=== PATIENT | male | born 1950 | race American Indian/Alaskan Native ===

== ENCOUNTER 2019-09-08 12:18 | Inpatient (IN) | payer OTHER ==
--- NOTE | 2019-09-08 13:31 | Event Note ---
ED Screening Note Date of service: 09/08/19 Time: 13:26 ED Screening Note: 69 y o male altered and poor historian presents unable to answer why he is here This initial assessment/diagnostic orders/clinical plan/treatment(s) is/are subject to change based on patients health status, clinical progression and re- assessment by fellow clinical providers in the ED. Further treatment and workup at subsequent clinical providers discretion. Patient/guardian urged not to elope from the ED as their condition may be serious if not clinically assessed and managed. Initial orders include: labs, ua, uds main side eval
[2019-09-08] MEDS ORDERED: SODIUM CHLORIDE 0.9% 500 ML 500 ML IV ONE (15:31)
--- NOTE | 2019-09-08 15:32 | Emergency Department Report ---
ED Altered Mental Status HPI - General Chief Complaint: Medical Clearance Stated Complaint: HOMELESS Time Seen by Provider: 09/08/19 15:30 Source: patient, EMS Mode of arrival: Wheelchair Limitations: No Limitations - History of Present Illness Initial Comments: Patient is a 69-year-old male that presents emergency room with complaints of altered mental status. Patient is currently anal times one. Patient states she's on pain. Patient states he's not sure why he is here. Patient was brought in by EMS as he was found wandering at a gas station. MD Complaint: altered mental status, confusion -: Sudden Severity: severe Consistency of Symptoms: constant Context: other Associated Symptoms: denies other symptoms - Related Data Allergies Allergy/AdvReac Type Severity Reaction Status Date / Time No Known Allergies Allergy Unverified 09/08/19 12:27 ED Review of Systems ROS: Stated complaint: HOMELESS Other details as noted in HPI Comment: Unobtainable due to pts medical conditions ED Past Medical Hx - Past Medical History Previous Medical History?: No - Surgical History Past Surgical History?: No - Family History Family history: no significant - Social History Smoking Status: Unknown if ever smoked Substance Use Type: None ED Physical Exam - General Limitations: Altered Mental Status General appearance: alert, in no apparent distress - Head Head exam: Present: atraumatic, normocephalic - Eye Eye exam: Present: normal appearance - ENT ENT exam: Present: mucous membranes moist - Neck Neck exam: Present: normal inspection - Respiratory Respiratory exam: Present: normal lung sounds bilaterally. Absent: respiratory distress, wheezes - Cardiovascular Cardiovascular Exam: Present: regular rate, normal rhythm. Absent: systolic murmur, diastolic murmur, rubs, gallop - GI/Abdominal GI/Abdominal exam: Present: soft, normal bowel sounds. Absent: distended, tenderness, guarding - Rectal Rectal exam: Present: deferred - Extremities Exam Extremities exam: Present: normal inspection - Back Exam Back exam: Present: normal inspection - Neurological Exam Neurological exam: Present: alert, altered - Psychiatric Psychiatric exam: Present: normal affect, normal mood - Skin Skin exam: Present: warm, dry, intact, normal color. Absent: rash - Assessment Assessment Interval: Baseline - Level of Consciousness 1a. Level of Consciousness: alert/keenly responsive - LOC Questions 1b. LOC Questions: answers both correctly - LOC Command 1c. LOC Commands: performs tasks correctly - Best Gaze 2. Best Gaze: normal - Visual 3. Visual: no visual loss - Facial Palsy 4. Facial Palsy: normal symmetrical movement - Motor Arm 5a. Motor Arm Left: no drift 5b. Motor Arm Right: no drift - Motor Leg 6a. Motor Leg Left: no drift 6b. Motor Leg Right: no drift - Limb Ataxia 7. Limb Ataxia: absent - Sensory 8. Sensory: normal - Best Language 9. Best Language: no aphasia - Dysarthria 10. Dysarthria: normal - Extinction and Inattention 11. Extinction/Inattention: no abnormality - Scoring Total Score: 0 Stroke Severity: No Stroke Symptoms ED Course Vital Signs 09/08/19 09/08/19 13:33 18:40 Temperature 97.1 F L 98.1 F Pulse Rate 50 L 71 Respiratory 18 18 Rate Blood Pressure 102/67 136/80 O2 Sat by Pulse 100 93 Oximetry - Reevaluation(s) Reevaluation #1: Discussed all results patient. Patient will be admitted to the hospital service. 09/08/19 18:09 - Consultations Consultation #1: hospitalist consulted admission. Hospitalist admit patient. 09/08/19 18:09 - Lab Data Result diagrams: 09/08/19 15:46 09/08/19 15:46 Lab Results 09/08/19 09/08/19 09/08/19 Range/Units 15:46 15:46 15:46 WBC 5.8 (4.5-11.0) K/mm3 RBC 4.01 (3.65-5.03) M/mm3 Hgb 10.0 L (11.8-15.2) gm/dl Hct 31.9 L (35.5-45.6) % MCV 79 L (84-94) fl MCH 25 L (28-32) pg MCHC 31 L (32-34) % RDW 16.3 H (13.2-15.2) % Plt Count 617 H (140-440) K/mm3 Lymph % (Auto) 19.8 (13.4-35.0) % [place] % (Auto) 9.4 H (0.0-7.3) % Eos % (Auto) 2.2 (0.0-4.3) % Baso % (Auto) 0.7 (0.0-1.8) % Lymph # 1.1 L (1.2-5.4) K/mm3 [place] # 0.5 (0.0-0.8) K/mm3 Eos # 0.1 (0.0-0.4) K/mm3 Baso # 0.0 (0.0-0.1) K/mm3 Seg Neutrophils % 67.9 (40.0-70.0) % Seg Neutrophils # 3.9 (1.8-7.7) K/mm3 Sodium 148 H (137-145) mmol/L Potassium 3.5 L (3.6-5.0) mmol/L Chloride 111.3 H (98-107) mmol/L Carbon Dioxide 22 (22-30) mmol/L Anion Gap 18 mmol/L BUN 18 (9-20) mg/dL Creatinine 0.8 (0.8-1.5) mg/dL Estimated GFR > 60 ml/min BUN/Creatinine Ratio 23 % Glucose 105 H (75-100) mg/dL Calcium 8.5 (8.4-10.2) mg/dL Total Bilirubin 0.20 (0.1-1.2) mg/dL AST 51 H (5-40) units/L ALT 41 (7-56) units/L Alkaline Phosphatase 74 (35-129) units/L Total Protein 6.1 L (6.3-8.2) g/dL Albumin 3.3 L (3.9-5) g/dL Albumin/Globulin Ratio 1.2 % TSH 2.940 (0.270-4.200) mlU/mL Acetaminophen (10.0-30.0) ug/mL Plasma/Serum Alcohol (0-0.07) % 09/08/19 09/08/19 Range/Units 15:46 15:46 WBC (4.5-11.0) K/mm3 RBC (3.65-5.03) M/mm3 Hgb (11.8-15.2) gm/dl Hct (35.5-45.6) % MCV (84-94) fl MCH (28-32) pg MCHC (32-34) % RDW (13.2-15.2) % Plt Count (140-440) K/mm3 Lymph % (Auto) (13.4-35.0) % [place] % (Auto) (0.0-7.3) % Eos % (Auto) (0.0-4.3) % Baso % (Auto) (0.0-1.8) % Lymph # (1.2-5.4) K/mm3 [place] # (0.0-0.8) K/mm3 Eos # (0.0-0.4) K/mm3 Baso # (0.0-0.1) K/mm3 Seg Neutrophils % (40.0-70.0) % Seg Neutrophils # (1.8-7.7) K/mm3 Sodium (137-145) mmol/L Potassium (3.6-5.0) mmol/L Chloride (98-107) mmol/L Carbon Dioxide (22-30) mmol/L Anion Gap mmol/L BUN (9-20) mg/dL Creatinine (0.8-1.5) mg/dL Estimated GFR ml/min BUN/Creatinine Ratio % Glucose (75-100) mg/dL Calcium (8.4-10.2) mg/dL Total Bilirubin (0.1-1.2) mg/dL AST (5-40) units/L ALT (7-56) units/L Alkaline Phosphatase (35-129) units/L Total Protein (6.3-8.2) g/dL Albumin (3.9-5) g/dL Albumin/Globulin Ratio % TSH (0.270-4.200) mlU/mL Acetaminophen < 5.0 L (10.0-30.0) ug/mL Plasma/Serum Alcohol < 0.01 (0-0.07) % - EKG Data -: EKG Interpreted by Wy EKG shows normal: sinus rhythm, axis, intervals, QRS complexes, ST-T waves Rate: bradycardia - Radiology Data Radiology results: report reviewed, image reviewed No acute findings on head CT. - Medical Decision Making Patient is a 69-year-old male that presents emergency room with complaints of altered mental status. Patient is confused and oriented times one. Patient denies any physical complaints. Patient had labs done and shows hypernatremia and anemia. Patient admitted to the hospitalist service for further evaluation and treatment. - Differential Diagnosis altered mental status. Confusion. Electrolyte imbalance. Critical Care Time: Yes Critical care time in (mins) excluding proc time.: 35 Critical care attestation.: If time is entered above; I have spent that time in minutes in the direct care of this critically ill patient, excluding procedure time. Critical Care Time: 35 minutes ED Disposition Clinical Impression: Confusion, Hyponatremia Anemia Qualifiers: Anemia type: unspecified type Qualified Code(s): D64.9 - Anemia, unspecified Altered mental state Qualifiers: Altered mental status type: unspecified Qualified Code(s): R41.82 - Altered mental status, unspecified Disposition: DC-09 OP ADMIT IP TO THIS HOSP Is pt being admited?: Yes Does the pt Need Aspirin: No Condition: Critical Time of Disposition: 18:14
[2019-09-08 15:58] LABS: Basophils % (Auto) 0.7 % (0.0-1.8); Eosinophils # (Auto) 0.1 K/mm3 (0.0-0.4); Eosinophils % (Auto) 2.2 % (0.0-4.3); Hematocrit 31.9 % (35.5-45.6); Lymphocytes # (Auto) 1.1 K/mm3 (1.2-5.4); Lymphocytes % (Auto) 19.8 % (13.4-35.0); Mean Corpuscular HGB Conc 31 % (32-34); Mean Corpuscular Volume 79 fl (84-94); Monocytes # (Auto) 0.5 K/mm3 (0.0-0.8); Monocytes % (Auto) 9.4 % (0.0-7.3); Platelet Count 617 K/mm3 (140-440); Red Blood Count 4.01 M/mm3 (3.65-5.03); Red Cell Distribution Width 16.3 % (13.2-15.2)
[2019-09-08 16:59] LABS: Alanine Aminotransferase 41 units/L (7-56); Albumin 3.3 g/dL (3.9-5); BUN/Creatinine Ratio 23; Blood Urea Nitrogen 18 mg/dL (9-20); Calcium 8.5 mg/dL (8.4-10.2); Hemolysis Index 1
--- NOTE | 2019-09-08 17:46 | Cat Scan Report ---
CT head/brain wo con INDICATION / CLINICAL INFORMATION: 69 years Male; ams. TECHNIQUE: Routine CT head without contrast. All CT scans at this location are performed using CT dos e reduction for ALARA by means of automated exposure control. COMPARISON: None. FINDINGS: BRAIN / INTRACRANIAL CONTENTS: Mild cerebral atrophy and mild to moderate cerebellar atrophy noted. B ecause of the mild, asymmetrically prominent cerebellar atrophy, chronic EtOH usage, chronic antiseiz ure medication, or primary cerebellar degeneration might be considered. Otherwise, no acute hemorrhage, mass effect, midline shift, hydrocephalus, or acute, large territori al infarct. No significant white matter abnormality. CRANIOCERVICAL JUNCTION: No significant abnormality. ORBITS: No significant abnormality of visualized orbits. SINUSES / MASTOIDS: No significant abnormality the visualized paranasal sinuses or mastoid air cells. ADDITIONAL FINDINGS: None. IMPRESSION: 1. No focal mass, hemorrhage, hydrocephalus, or acute, large territorial infarct. 2. Mild atrophy as described above. Signer Name: Renan Riddle MD, III Signed: 09/08/2019 5:41 PM Workstation Name: [id number]
[2019-09-08 21:05] LABS: BUN/Creatinine Ratio 18; Blood Urea Nitrogen 16 mg/dL (9-20); Calcium 8.2 mg/dL (8.4-10.2); Hemolysis Index 3
--- NOTE | 2019-09-08 22:34 | History and Physical Report ---
History of Present Illness Date of examination: 09/08/19 Date of admission: 09/08/19 20:08 Chief complaint: Decreased mentation History of present illness: 69-year-old male presents to emergency room with complaints of altered mental status. Patient is currently alert times one. Patient states he's not sure why he is here. Patient was brought in by EMS as he was found wandering at a gas station. Past Medical History Previous Medical History?: No Surgical History Past Surgical History?: No Family History Family history: no significant Social History Smoking Status: Unknown if ever smoked Substance Use Type: None Review of Systems ROS: Stated complaint: HOMELESS Other details as noted in HPI Comment: Unobtainable due to pts medical conditions Medications and Allergies Allergies Allergy/AdvReac Type Severity Reaction Status Date / Time No Known Allergies Allergy Unverified 09/08/19 12:27 Exam - Constitutional Vitals: Temp Pulse Resp BP Pulse Ox 98.1 F 71 18 136/80 93 09/08/19 18:40 09/08/19 18:40 09/08/19 18:40 09/08/19 18:40 09/08/19 18:40 General appearance: Present: no acute distress, well-nourished - EENT Eyes: Present: PERRL ENT: hearing intact, clear oral mucosa - Neck Neck: Present: supple, normal ROM - Respiratory Respiratory effort: normal Respiratory: bilateral: CTA - Cardiovascular Heart rate: 78 Rhythm: regular Heart Sounds: Present: S1 & S2. Absent: rub, click - Extremities Extremities: no ischemia, pulses intact, pulses symmetrical, No edema Peripheral Pulses: within normal limits - Abdominal General gastrointestinal: Present: soft, non-tender, non-distended, normal bowel sounds Male genitourinary: Present: normal - Rectal Rectal Exam: deferred - Integumentary Integumentary: Present: clear, warm, dry - Musculoskeletal Musculoskeletal: generalized weakness - Psychiatric Psychiatric: appropriate mood/affect, other (Alert but not oriented) - Neurologic Neurologic: CNII-XII intact, moves all extremities - Allied Health Allied health notes reviewed: nursing, case management Results - Labs CBC & Chem 7: 09/08/19 15:46 09/08/19 20:45 Labs: Laboratory Last Values WBC 5.8 K/mm3 (4.5-11.0) 09/08/19 15:46 RBC 4.01 M/mm3 (3.65-5.03) 09/08/19 15:46 Hgb 10.0 gm/dl (11.8-15.2) L 09/08/19 15:46 Hct 31.9 % (35.5-45.6) L 09/08/19 15:46 MCV 79 fl (84-94) L 09/08/19 15:46 MCH 25 pg (28-32) L 09/08/19 15:46 MCHC 31 % (32-34) L 09/08/19 15:46 RDW 16.3 % (13.2-15.2) H 09/08/19 15:46 Plt Count 617 K/mm3 (140-440) H 09/08/19 15:46 Lymph % (Auto) 19.8 % (13.4-35.0) 09/08/19 15:46 [place] % (Auto) 9.4 % (0.0-7.3) H 09/08/19 15:46 Eos % (Auto) 2.2 % (0.0-4.3) 09/08/19 15:46 Baso % (Auto) 0.7 % (0.0-1.8) 09/08/19 15:46 Lymph # 1.1 K/mm3 (1.2-5.4) L 09/08/19 15:46 [place] # 0.5 K/mm3 (0.0-0.8) 09/08/19 15:46 Eos # 0.1 K/mm3 (0.0-0.4) 09/08/19 15:46 Baso # 0.0 K/mm3 (0.0-0.1) 09/08/19 15:46 Seg Neutrophils % 67.9 % (40.0-70.0) 09/08/19 15:46 Seg Neutrophils # 3.9 K/mm3 (1.8-7.7) 09/08/19 15:46 Sodium 148 mmol/L (137-145) H 09/08/19 20:45 Potassium 3.3 mmol/L (3.6-5.0) L 09/08/19 20:45 Chloride 114.6 mmol/L (98-107) H 09/08/19 20:45 Carbon Dioxide 21 mmol/L (22-30) L 09/08/19 20:45 Anion Gap 16 mmol/L 09/08/19 20:45 BUN 16 mg/dL (9-20) 09/08/19 20:45 Creatinine 0.9 mg/dL (0.8-1.5) 09/08/19 20:45 Estimated GFR > 60 ml/min 09/08/19 20:45 BUN/Creatinine Ratio 18 % 09/08/19 20:45 Glucose 68 mg/dL (75-100) L 09/08/19 20:45 Calcium 8.2 mg/dL (8.4-10.2) L 09/08/19 20:45 Total Bilirubin 0.20 mg/dL (0.1-1.2) 09/08/19 15:46 AST 51 units/L (5-40) H 09/08/19 15:46 ALT 41 units/L (7-56) 09/08/19 15:46 Alkaline Phosphatase 74 units/L (35-129) 09/08/19 15:46 Total Protein 6.1 g/dL (6.3-8.2) L 09/08/19 15:46 Albumin 3.3 g/dL (3.9-5) L 09/08/19 15:46 Albumin/Globulin Ratio 1.2 % 09/08/19 15:46 TSH 2.940 mlU/mL (0.270-4.200) 09/08/19 15:46 Acetaminophen < 5.0 ug/mL (10.0-30.0) L 09/08/19 15:46 Plasma/Serum Alcohol < 0.01 % (0-0.07) 09/08/19 15:46 - Imaging and Cardiology CT Scan - head: report reviewed (NAF,Mild Atrophy) Assessment and Plan Advance Directives: Yes (Full code) VTE prophylaxis?: Chemical Plan of care discussed with patient/family: Yes - Patient Problems (1) Altered mental state Current Visit: Yes Status: Acute Qualifiers: Altered mental status type: unspecified Qualified Code(s): R41.82 - Altered mental status, unspecified Plan to address problem: Possible vascular dementia MRI brain and Neuro consult (2) Hypernatremia Current Visit: Yes Status: Acute Plan to address problem: D5w for now (3) Anemia Current Visit: Yes Status: Chronic Qualifiers: Anemia type: unspecified type Qualified Code(s): D64.9 - Anemia, unspecified Plan to address problem: Anemia W/u (4) Hypokalemia Current Visit: Yes Status: Acute Plan to address problem: Supplemented (5) DVT prophylaxis Current Visit: Yes Status: Acute Plan to address problem: On Heparin and GI prophylaxis
[2019-09-08] MEDS ORDERED: ONDANSETRON 4 MG/2 ML INJ IV PRN (22:36)
[2019-09-08] MEDS ORDERED: SODIUM CHLORIDE 0.45% 1000 ML 1,000 ML IV SCH (23:00)
[2019-09-09] MEDS ORDERED: POTASSIUM CHLORIDE ER 20 MEQ TAB PO ONE (07:32)
[2019-09-09] MEDS: DEXTROSE 5% IN WATER 1,000 ML IV SCH ×2 (08:35→19:24)
[2019-09-09] MEDS: FAMOTIDINE 20 MG/2 ML INJ IV SCH ×2 (09:22→21:38)
[2019-09-09] MEDS: HEPARIN 5,000 UNIT/1 ML VIAL SUB-Q SCH ×2 (09:22→21:39)
--- NOTE | 2019-09-09 09:55 | Consultation ---
History of Present Illness Consult date: 09/09/19 History of present illness: I have dictated a full note on this patient and examined him the CT of the head is clearly normal klabs are basically WNL's suspect dementia work up is reqasonable Medications and Allergies Allergies Allergy/AdvReac Type Severity Reaction Status Date / Time No Known Allergies Allergy Unverified 09/08/19 12:27 Active Meds: Active Medications Acetaminophen (Tylenol) 650 mg PO Q4H PRN PRN Reason: Pain MILD(1-3)/Fever >100.5/AYALA Famotidine (Pepcid) 20 mg IV BID [facility] Last Admin: 09/09/19 09:22 Dose: 20 mg Documented by: Heparin Sodium (Porcine) (Heparin) 5,000 unit SUB-Q Q12HR [facility] Last Admin: 09/09/19 09:22 Dose: 5,000 unit Documented by: Dextrose (D5w) 1,000 mls @ 100 mls/hr IV DIRECT [facility] Last Admin: 09/09/19 08:35 Dose: 100 mls/hr Documented by: Ondansetron HCl (Zofran) 4 mg IV Q8H PRN PRN Reason: Nausea And Vomiting Oxycodone/Acetaminophen (Percocet 5/325) 1 tab PO Q6H PRN PRN Reason: Pain, Moderate (4-6) Sodium Chloride (Sodium Chloride Flush Syringe 10 Ml) 10 ml IV BID [facility] Last Admin: 09/09/19 09:22 Dose: 10 ml Documented by: Sodium Chloride (Sodium Chloride Flush Syringe 10 Ml) 10 ml IV PRN PRN PRN Reason: LINE FLUSH Physical Examination - Vital Signs Vital Signs: Vital Signs Temp Pulse Resp BP Pulse Ox 97.1 F L 50 L 18 102/67 100 09/08/19 13:33 09/08/19 13:33 09/08/19 13:33 09/08/19 13:33 09/08/19 13:33 Results - Laboratory Findings CBC and BMP: 09/08/19 15:46 09/08/19 20:45 Abnormal Lab Findings: Abnormal Labs 09/08/19 09/08/19 09/08/19 15:46 15:46 15:46 Hgb 10.0 L Hct 31.9 L MCV 79 L MCH 25 L MCHC 31 L RDW 16.3 H Plt Count 617 H [place] % (Auto) 9.4 H Lymph # 1.1 L Sodium 148 H Potassium 3.5 L Chloride 111.3 H Carbon Dioxide Glucose 105 H Calcium AST 51 H Total Protein 6.1 L Albumin 3.3 L Acetaminophen < 5.0 L 09/08/19 20:45 Hgb Hct MCV MCH MCHC RDW Plt Count [place] % (Auto) Lymph # Sodium 148 H Potassium 3.3 L Chloride 114.6 H Carbon Dioxide 21 L Glucose 68 L Calcium 8.2 L AST Total Protein Albumin Acetaminophen
--- NOTE | 2019-09-09 13:48 | Progress Note ---
Assessment and Plan / Altered mental state Possible vascular dementia MRI brain and Neuro consult / Hypernatremia D5w for now /Hypokalemia, replete potassium /Anemia, likely due to chronic disease Anemia W/u / DVT prophylaxis On Heparin and GI prophylaxis Hospitalist Physical exam: GENERAL: well-developed and well-nourished -[place] male lying on bed appeared to be in no discomfort. Does not respond to any verbal commands HEENT: Normocephalic. Atraumatic. No conjunctival congestion or icterus. Patient has moist mucous membranes. NECK: Supple. Trachea midline. CHEST/LUNGS: Clear to auscultated bilaterally, breathing nonlabored. No wheezes crackles or rhonchi. HEART/CARDIOVASCULAR: Regular in rate and rhythm. S1 and S2 positive. ABDOMEN: Abdomen is soft, nontender. Patient has normal bowel sounds. SKIN: There is no rash. Warm and dry. NEURO: No focal motor deficit/moves all extremities. does not Follows command. MUSCULOSKELETAL: No joint effusion or tenderness. EXTRIMITY: No edema, no cyanosis or clubbing. PSYCH: Not Cooperative. Flat affect Subjective Date of service: 09/09/19 Interval history: Patient seen and examined. Medical records and medication list reviewed. No acute event overnight noted by the RN. Patient appears sleepy and does not respond to verbal command Objective - Constitutional Vitals: Vital Signs - 12hr 09/09/19 09/09/19 07:20 10:00 Temperature 97.5 F L Pulse Rate 57 L 57 L Respiratory 18 Rate Blood Pressure 109/41 O2 Sat by Pulse 90 Oximetry - Labs CBC & Chem 7: 09/09/19 15:05 09/10/19 04:11 Labs: Abnormal lab results 09/08/19 09/08/19 09/08/19 Range/Units 15:46 15:46 15:46 Hgb 10.0 L (11.8-15.2) gm/dl Hct 31.9 L (35.5-45.6) % MCV 79 L (84-94) fl MCH 25 L (28-32) pg MCHC 31 L (32-34) % RDW 16.3 H (13.2-15.2) % Plt Count 617 H (140-440) K/mm3 [place] % (Auto) 9.4 H (0.0-7.3) % Lymph # 1.1 L (1.2-5.4) K/mm3 Sodium 148 H (137-145) mmol/L Potassium 3.5 L (3.6-5.0) mmol/L Chloride 111.3 H (98-107) mmol/L Carbon Dioxide (22-30) mmol/L Glucose 105 H (75-100) mg/dL Calcium (8.4-10.2) mg/dL AST 51 H (5-40) units/L Total Protein 6.1 L (6.3-8.2) g/dL Albumin 3.3 L (3.9-5) g/dL Acetaminophen < 5.0 L (10.0-30.0) ug/mL 09/08/ Range/Units 20:45 Hgb (11.8-15.2) gm/dl Hct (35.5-45.6) % MCV (84-94) fl MCH (28-32) pg MCHC (32-34) % RDW (13.2-15.2) % Plt Count (140-440) K/mm3 [place] % (Auto) (0.0-7.3) % Lymph # (1.2-5.4) K/mm3 Sodium 148 H (137-145) mmol/L Potassium 3.3 L (3.6-5.0) mmol/L Chloride 114.6 H (98-107) mmol/L Carbon Dioxide 21 L (22-30) mmol/L Glucose 68 L (75-100) mg/dL Calcium 8.2 L (8.4-10.2) mg/dL AST (5-40) units/L Total Protein (6.3-8.2) g/dL Albumin (3.9-5) g/dL Acetaminophen (10.0-30.0) ug/mL
[2019-09-09 15:26] LABS: Hematocrit 31.9 % (35.5-45.6); Hemoglobin 10.1 gm/dl (11.8-15.2); Mean Corpuscular HGB Conc 32 % (32-34); Mean Corpuscular Volume 80 fl (84-94); Platelet Count 633 K/mm3 (140-440); Red Cell Distribution Width 16.6 % (13.2-15.2)
[2019-09-09 15:51] LABS: BUN/Creatinine Ratio 16; Blood Urea Nitrogen 14 mg/dL (9-20); Calcium 8.2 mg/dL (8.4-10.2); Hemolysis Index 2
--- NOTE | 2019-09-09 17:31 | Consultation ---
HISTORY OF PRESENT ILLNESS: This is a 69-year-old gentleman who by history is homeless. He presented to the hospital currently in pain and the patient states that he does not know why he was here, brought by EMS. He was wandering around a gas station, disoriented and altered mental state. History cannot be obtained from the patient. No family members are present. Evaluation of the labs revealed his hematocrit to be 31.9, white blood count 5800. His AST was slightly elevated at 51. His ALT was 41. His alkaline phosphatase was 74. His albumin was 3.3. The patient's acetaminophen level was negative. Thyroid profiles are not yet returned. The EKG was normal sinus rhythm. No other abnormalities are present. Outside history was not obtainable from the patient. He had no family, no one came with him. I reviewed his CT scan of the head and a CT scan showed sinus is normal. Retroorbital structures unremarkable. He has equivalent age-related atrophy, slightly more so in the frontal lobes, but quite within normal limits for the patient's stated age. The charles white matters have normal appearance. I do not see any evidence of any white matter hypodensities that are suggestive of stroke. The pineal gland is very minimally calcified, but is in the midline. Cerebellum may be slightly atrophic over the lateral hemispheres. The fourth ventricle is at the upper limits of normal, suggesting a mild degree of cerebellar atrophy. The remainder of the CT scan is entirely unremarkable. Further history obtainable by the staff on the floor indicates he is not eating, would not attempt to speak, would nod his head, does respond to questions, but cannot follow commands. He does seem extremely frail and very slow to react. PHYSICAL EXAMINATION: VITAL SIGNS: Reveals his pulse rate to be 74, temperature is 97.5, respiratory rate 18, blood pressure was 109/41. NEUROLOGIC: Cranial nerves are intact. Affect is withdrawn, very hyperverbal. He does not follow simple commands. He, when stimulated, rolls over in attempts to maintain some eye contact and quickly returns back to the left. He remained in a semi-sleepy state, not wishing to arouse the patient further after talking with the nurse, it was elected to simply not contribute to any agitation, but allow him to remain in a relaxing composition. Motor tone is symmetrical. No reflex abnormalities are present. Sensory examination grossly is normal. IMPRESSION AND PLAN: Encephalopathic state without obvious reason, could be related to being on antipsychotic therapy, could be substance abuse, which is not detectable at this point or he could be withdrawing from some substance and be in an altered state with altered delirium with reduced level of responsiveness. Further workup is pending. We will get an EEG. At this point, I do not think an MRI is indicated as an emergency, but observation will be made. I think it would be beneficial to get a full dementia workup. Obviously social service to contact family members to get more detailed history would be helpful. JOB# [id number] TYSHAWN/EMANUEL
[2019-09-09] MEDS: oxyCODONE /ACETAMINOPHEN 5-325MG TAB PO PRN (21:38)
[2019-09-09] MEDS ORDERED: LORazepam 2 MG/ML VIAL IV ONE (23:38)
[2019-09-10 05:11] LABS: BUN/Creatinine Ratio 18; Blood Urea Nitrogen 16 mg/dL (9-20); Hemolysis Index 5
[2019-09-10] MEDS: FAMOTIDINE 20 MG/2 ML INJ IV SCH ×2 (09:47→22:45)
[2019-09-10] MEDS: HEPARIN 5,000 UNIT/1 ML VIAL SUB-Q SCH ×2 (09:47→22:45)
--- NOTE | 2019-09-10 13:53 | Progress Note ---
Assessment and Plan / Altered mental state - Acute metabolic encephalopathy Likely from hypernatremia and underlying Possible vascular dementia MRI brain and Neuro consulted - MRI brain pending check B12, TSH / Hypernatremia, improving D5w for now /Hypokalemia, replete potassium /Anemia, likely due to chronic disease Anemia W/u / DVT prophylaxis On Heparin and GI prophylaxis Disposition: CM consulted for social evaluation, patient unable to provide any details Hospitalist Physical exam: GENERAL: well-developed and well-nourished -[place]i male lying on bed appeared to be in no discomfort. HEENT: Normocephalic. Atraumatic. No conjunctival congestion or icterus. Patient has moist mucous membranes. NECK: Supple. Trachea midline. CHEST/LUNGS: Clear to auscultated bilaterally, breathing nonlabored. No wheezes crackles or rhonchi. HEART/CARDIOVASCULAR: Regular in rate and rhythm. S1 and S2 positive. ABDOMEN: Abdomen is soft, nontender. Patient has normal bowel sounds. SKIN: There is no rash. Warm and dry. NEURO: No focal motor deficit/moves all extremities. Follows command. MUSCULOSKELETAL: No joint effusion or tenderness. EXTRIMITY: No edema, no cyanosis or clubbing. PSYCH: Cooperative. Flat affect, oriented to person only Subjective Date of service: 09/10/19 Interval history: Patient seen and examined. Medical records and medication list reviewed. No acute event overnight noted by the RN. Patient appears alert and awake today, Unaware about time and place Objective - Constitutional Vitals: Vital Signs - 12hr 09/10/19 09/10/19 09/10/19 02:24 07:41 10:00 Temperature 97.7 F 97.3 F L Pulse Rate 48 L 50 L Pulse Rate [ 50 L From Monitor] Respiratory 18 18 18 Rate Blood Pressure 128/53 122/55 O2 Sat by Pulse 96 93 93 Oximetry - Labs CBC & Chem 7: 09/09/19 15:05 09/11/19 00:37 Labs: Abnormal lab results 09/09/19 09/09/19 09/10/19 Range/Units 15:05 15:05 04:11 Hgb 10.1 L (11.8-15.2) gm/dl Hct 31.9 L (35.5-45.6) % MCV 80 L (84-94) fl MCH 25 L (28-32) pg RDW 16.6 H (13.2-15.2) % Plt Count 633 H (140-440) K/mm3 Sodium 146 H (137-145) mmol/L Potassium 3.1 L 3.4 L (3.6-5.0) mmol/L Chloride 113.8 H 110.0 H (98-107) mmol/L Carbon Dioxide 21 L (22-30) mmol/L Glucose 71 L (75-100) mg/dL Calcium 8.2 L 8.0 L (8.4-10.2) mg/dL
[2019-09-10] MEDS ORDERED: LORazepam 2 MG/ML VIAL IV ONE (22:42)
[2019-09-11 01:28] LABS: BUN/Creatinine Ratio 17; Blood Urea Nitrogen 15 mg/dL (9-20); Calcium 7.8 mg/dL (8.4-10.2); Hemolysis Index 4
[2019-09-11] MEDS ORDERED: POTASSIUM CHLORIDE ER 20 MEQ TAB PO NR (08:47)
[2019-09-11] MEDS: HEPARIN 5,000 UNIT/1 ML VIAL SUB-Q SCH ×2 (10:11→21:09)
[2019-09-11] MEDS: FAMOTIDINE 20 MG/2 ML INJ IV SCH ×2 (10:15→21:09)
--- NOTE | 2019-09-11 15:11 | Progress Note ---
Assessment and Plan / Altered mental state - Acute metabolic encephalopathy Likely from hypernatremia and underlying Possible vascular dementia MRI brain and Neuro consulted - MRI brain cannot obtain as no basic history available normal B12, TSH / Hypernatremia, improving D5w for now /Hypokalemia, replete potassium, monitor bmp /Anemia, likely due to chronic disease Anemia W/u / DVT prophylaxis On Heparin and GI prophylaxis Disposition: CM consulted for social evaluation, patient unable to provide any details Brief History: 69-year-old male presents to emergency room with complaints of altered mental status.Patient states he's not sure why he is here. Patient was brought in by EMS as he was found wandering [place] a gas station. Lab showed hypernatremia and hypokalemia. admitted for further Mx Hospitalist Physical exam: GENERAL: well-developed and well-nourished -Mongolian male lying on bed appeared to be in no discomfort. HEENT: Normocephalic. Atraumatic. No conjunctival congestion or icterus. Patient has moist mucous membranes. NECK: Supple. Trachea midline. CHEST/LUNGS: Clear to auscultated bilaterally, breathing nonlabored. No wheezes crackles or rhonchi. HEART/CARDIOVASCULAR: Regular in rate and rhythm. S1 and S2 positive. ABDOMEN: Abdomen is soft, nontender. Patient has normal bowel sounds. SKIN: There is no rash. Warm and dry. NEURO: No focal motor deficit/moves all extremities. Follows command. MUSCULOSKELETAL: No joint effusion or tenderness. EXTRIMITY: No edema, no cyanosis or clubbing. PSYCH: Cooperative. Flat affect, oriented to person only Subjective Date of service: 09/11/19 Interval history: Patient seen and examined. Medical records and medication list reviewed. No acute event overnight noted by the RN. Patient appears alert and awake, Unaware about time and place No family at bedside Objective - Labs CBC & Chem 7: 09/09/19 15:05 09/11/19 00:37 Labs: Abnormal lab results 09/11/19 09/11/19 Range/Units 00:37 00:37 Potassium 3.5 L (3.6-5.0) mmol/L Chloride 110.4 H (98-107) mmol/L Calcium 7.8 L (8.4-10.2) mg/dL Vitamin B12 1123 H (211-911) pg/mL
--- NOTE | 2019-09-11 15:48 | Progress Note ---
Subjective Date of service: 09/11/19 Interval history: still with severe confusion and there ios ersistant levated platelrt count but not like PCV still no family here suspect dementia Objective - Laboratory Findings CBC and BMP: 09/09/19 15:05 09/11/19 00:37 Abnormal Lab Findings: Abnormal Labs 09/08/19 09/08/19 09/08/19 15:46 15:46 15:46 Hgb 10.0 L Hct 31.9 L MCV 79 L MCH 25 L MCHC 31 L RDW 16.3 H Plt Count 617 H [place] % (Auto) 9.4 H Lymph # 1.1 L Sodium 148 H Potassium 3.5 L Chloride 111.3 H Carbon Dioxide Glucose 105 H Calcium AST 51 H Total Protein 6.1 L Albumin 3.3 L Vitamin B12 Acetaminophen < 5.0 L 09/08/19 09/09/19 09/09/19 20:45 15:05 15:05 Hgb 10.1 L Hct 31.9 L MCV 80 L MCH 25 L MCHC RDW 16.6 H Plt Count 633 H [place] % (Auto) Lymph # Sodium 148 H 146 H Potassium 3.3 L 3.1 L Chloride 114.6 H 113.8 H Carbon Dioxide 21 L 21 L Glucose 68 L 71 L Calcium 8.2 L 8.2 L AST Total Protein Albumin Vitamin B12 Acetaminophen 09/10/19 09/11/19 09/11/19 04:11 00:37 00:37 Hgb Hct MCV MCH MCHC RDW Plt Count [place] % (Auto) Lymph # Sodium Potassium 3.4 L 3.5 L Chloride 110.0 H 110.4 H Carbon Dioxide Glucose Calcium 8.0 L 7.8 L AST Total Protein Albumin Vitamin B12 1123 H Acetaminophen
[2019-09-11 16:43] LABS: % Iron Saturation 20.38 %
[2019-09-11] MEDS ORDERED: LORazepam 2 MG/ML VIAL IV ONE (21:00)
[2019-09-11] MEDS: POTASSIUM CHLORIDE 10 MEQ 10 MEQ/100 ML BAG IV SCH (23:22)
[2019-09-11] MEDS: oxyCODONE /ACETAMINOPHEN 5-325MG TAB PO PRN (23:30)
[2019-09-12] MEDS: POTASSIUM CHLORIDE 10 MEQ 10 MEQ/100 ML BAG IV SCH ×2 (00:17→01:37)
[2019-09-12 08:26] LABS: BUN/Creatinine Ratio 14; Blood Urea Nitrogen 11 mg/dL (9-20); Calcium 8.4 mg/dL (8.4-10.2)
[2019-09-12 08:27] LABS: Hemolysis Index 16
[2019-09-12] MEDS: HEPARIN 5,000 UNIT/1 ML VIAL SUB-Q SCH ×2 (09:21→21:29)
[2019-09-12] MEDS: FAMOTIDINE 20 MG TAB PO SCH ×2 (09:21→21:17)
--- NOTE | 2019-09-12 13:43 | Progress Note ---
Assessment and Plan Assessment and plan: / Acute metabolic encephalopathy probably 2/2 hypernatremia versus underlying possible vascular dementia psych disorder is a possibility: mental health consulted normal B12, TSH CT head neg. MRI brain pending PRN haldol for severe agitation neurology following / Hypernatremia likely 2/2 dehydration resolved /Hypokalemia resolved /Anemia, likely due to chronic disease H/H stable / DVT prophylaxis On Heparin and GI prophylaxis Disposition: MRI brain and mental health consult pending History Interval history: Pt was seen today and in 4 point restraints due to severe agitation. He is alert and oriented x1 to person only Hospitalist Physical - Constitutional Vitals: Temp Pulse Resp BP Pulse Ox 97.5 F L 64 20 139/68 92 09/12/19 07:33 09/12/19 10:00 09/12/19 07:33 09/12/19 07:33 09/12/19 10:00 General appearance: Present: no acute distress - EENT Eyes: Present: PERRL, EOM intact ENT: hearing intact, clear oral mucosa - Neck Neck: Present: supple - Respiratory Respiratory effort: normal Respiratory: bilateral: CTA - Cardiovascular Rhythm: regular Heart Sounds: Present: S1 & S2 - Extremities Extremities: No edema - Abdominal General gastrointestinal: soft, non-tender, normal bowel sounds - Psychiatric Psychiatric: agitated - Neurologic Neurologic: moves all extremities Results - Labs CBC & Chem 7: 09/09/19 15:05 09/12/19 07:31 Labs: Laboratory Last Values WBC 5.4 K/mm3 (4.5-11.0) 09/09/19 15:05 RBC 4.00 M/mm3 (3.65-5.03) 09/09/19 15:05 Hgb 10.1 gm/dl (11.8-15.2) L 09/09/19 15:05 Hct 31.9 % (35.5-45.6) L 09/09/19 15:05 MCV 80 fl (84-94) L 09/09/19 15:05 MCH 25 pg (28-32) L 09/09/19 15:05 MCHC 32 % (32-34) 09/09/19 15:05 RDW 16.6 % (13.2-15.2) H 09/09/19 15:05 Plt Count 633 K/mm3 (140-440) H 09/09/19 15:05 Lymph % (Auto) 19.8 % (13.4-35.0) 09/08/19 15:46 [place] % (Auto) 9.4 % (0.0-7.3) H 09/08/19 15:46 Eos % (Auto) 2.2 % (0.0-4.3) 09/08/19 15:46 Baso % (Auto) 0.7 % (0.0-1.8) 09/08/19 15:46 Lymph # 1.1 K/mm3 (1.2-5.4) L 09/08/19 15:46 [place] # 0.5 K/mm3 (0.0-0.8) 09/08/19 15:46 Eos # 0.1 K/mm3 (0.0-0.4) 09/08/19 15:46 Baso # 0.0 K/mm3 (0.0-0.1) 09/08/19 15:46 Seg Neutrophils % 67.9 % (40.0-70.0) 09/08/19 15:46 Seg Neutrophils # 3.9 K/mm3 (1.8-7.7) 09/08/19 15:46 Sodium 140 mmol/L (137-145) 09/12/19 07:31 Potassium 3.9 mmol/L (3.6-5.0) 09/12/19 07:31 Chloride 104.5 mmol/L (98-107) 09/12/19 07:31 Carbon Dioxide 23 mmol/L (22-30) 09/12/19 07:31 Anion Gap 16 mmol/L 09/12/19 07:31 BUN 11 mg/dL (9-20) 09/12/19 07:31 Creatinine 0.8 mg/dL (0.8-1.5) 09/12/19 07:31 Estimated GFR > 60 ml/min 09/12/19 07:31 BUN/Creatinine Ratio 14 % 09/12/19 07:31 Glucose 84 mg/dL (75-100) 09/12/19 07:31 Calcium 8.4 mg/dL (8.4-10.2) 09/12/19 07:31 Magnesium 1.70 mg/dL (1.7-2.3) 09/12/19 07:31 Iron 43 ug/dL (49-181) L 09/11/19 15:54 TIBC 211 mcg/dL (250-450) L 09/11/19 15:54 % Saturation 20.38 % 09/11/19 15:54 Transferrin 155 mg/dl (180-329) L 09/11/19 15:54 Total Bilirubin 0.20 mg/dL (0.1-1.2) 09/08/19 15:46 AST 51 units/L (5-40) H 09/08/19 15:46 ALT 41 units/L (7-56) 09/08/19 15:46 Alkaline Phosphatase 74 units/L (35-129) 09/08/19 15:46 Total Protein 6.1 g/dL (6.3-8.2) L 09/08/19 15:46 Albumin 3.3 g/dL (3.9-5) L 09/08/19 15:46 Albumin/Globulin Ratio 1.2 % 09/08/19 15:46 Vitamin B12 1123 pg/mL (211-911) H 09/11/19 00:37 TSH 2.940 mlU/mL (0.270-4.200) 09/08/19 15:46 Acetaminophen < 5.0 ug/mL (10.0-30.0) L 09/08/19 15:46 Plasma/Serum Alcohol < 0.01 % (0-0.07) 09/08/19 15:46 Active Medications - Current Medications Current Medications: Generic Name Dose Route Start Last Admin Trade Name Freq PRN Reason Stop Dose Admin Acetaminophen 650 mg 09/08/19 22:36 Tylenol PO Q4H PRN Pain MILD(1-3)/Fever >100.5/AYALA Famotidine 20 mg 09/12/19 10:00 09/12/19 09:21 Pepcid PO 20 mg BID MARILIN Administration Heparin Sodium (Porcine) 5,000 unit 09/09/19 10:00 09/12/19 09:21 Heparin SUB-Q 5,000 unit Q12HR MARILIN Administration Ondansetron HCl 4 mg 09/08/19 22:36 09/11/19 21:08 Zofran IV 4 mg Q8H PRN Administration Nausea And Vomiting Oxycodone/Acetaminophen 1 tab 09/08/19 22:36 09/11/19 23:30 Percocet 5/325 PO 1 tab Q6H PRN Administration Pain, Moderate (4-6) Sodium Chloride 10 ml 09/09/19 10:00 09/12/19 09:21 Sodium Chloride Flush Syringe 10 Ml IV 10 ml BID MARILIN Administration Sodium Chloride 10 ml 09/08/19 22:36 Sodium Chloride Flush Syringe 10 Ml IV PRN PRN LINE FLUSH Nutrition/Malnutrition Assess - Dietary Evaluation Nutrition/Malnutrition Findings: Nutrition Notes Start: 09/12/19 10:25 Freq: Status: Active Protocol: Document 09/12/19 10:25 CT (Rec: 09/12/19 10:58 CT [id number]) Co-Sign 09/12/19 10:25 LP Nutrition Notes Need for Assessment generated from: travelift operator,MST Initial or Follow up Assessment Other Pertinent Diagnosis AMS, Hypernatremia, Anemia, Hypokalemia, Poss. Dementia, Edema Current Diet Regular Diet Labs/Tests Reviewed Pertinent Medications Heparin Height 5 ft 5 in Weight 74.843 kg Berry Body Weight (kg) 61.81 BMI 27.4 Intake Prior to Admission Fair Subjective/Other Information Pt confused at time of visit. Pt states that he sometimes ate [employer]. Pt consumed 100% of breakfast, stating that it took him a long time to eat d/ t chewing issues. Noted edema , temporal, clavicle, and orbital wasting. Pt has restraints connected to the bed. Pt stated he lost wt, but unsure of how much and time frame. Discussed mechanical soft diet with pt. Burn Absent Trauma Absent GI Symptoms None Difficulty In Chewing Food Allergy No Current % PO Good (75-100%) Minimum of two criteria Yes Energy Intake (non-severe) <75% Estimated Energy Requirement >7 days Body Fat Depletion Mild depletion (non-severe) Muscle Mass Mild Depletion (non-severe) Fluid Accumulation Mild (non-severe) #1 Nutrition Diagnosis Malnutrition Etiology secondary to AMS As Evidenced by Signs and Symptoms <75% energy intake > 1 week, mild fat mass depletion, mild muscle mass depletion, and mild edema. Is patient on ventilator? No Is Patient Ambulatory and/or Out of Bed No [facility] [phone] Calculation Used for Recommendations [facility] Additional Notes Protein needs: 90-112 g/day (1 .2-1.5 g/kg/day) Fluid needs: per MD Nutrition Intervention Change Diet Order: Change to Mechanical Soft Goal #1 Meet >80% of energy and protein needs Goal #2 Wt. gain/maintenance Anticipated Discharge Needs: Mechanical Soft Diet Follow-Up By: 09/14/19 Additional Comments Follow up for PO intakes and ONS tolerance
[2019-09-12] MEDS: ACETAMINOPHEN 325 MG TAB PO PRN (21:17)
[2019-09-13] MEDS ORDERED: HALOPERIDOL LACTATE 5 MG/1 ML INJ IM ONE (09:00)
[2019-09-13] MEDS: HEPARIN 5,000 UNIT/1 ML VIAL SUB-Q SCH ×3 (09:43→22:51)
[2019-09-13] MEDS: FAMOTIDINE 20 MG TAB PO SCH ×2 (09:43→22:51)
--- NOTE | 2019-09-13 11:08 | Progress Note ---
Assessment and Plan Assessment and plan: / Acute metabolic encephalopathy probably 2/2 hypernatremia versus underlying possible vascular dementia psych disorder is a possibility: mental health consulted cont 4-point restraints normal B12, TSH CT head neg. MRI brain pending neurology following / Hypernatremia likely 2/2 dehydration resolved /Hypokalemia resolved /Anemia, likely due to chronic disease H/H stable / DVT prophylaxis On Heparin Disposition: MRI brain and mental health consult pending History Interval history: Pt continues to be in 4 point restraints due to severe agitation. He is alert and oriented x1 to person only Hospitalist Physical - Constitutional Vitals: Temp Pulse Resp BP Pulse Ox 97.7 F 64 20 135/78 100 09/13/19 07:17 09/12/19 19:41 09/13/19 07:17 09/13/19 07:17 09/12/19 21:09 General appearance: Present: no acute distress - EENT Eyes: Present: PERRL - Neck Neck: Present: supple - Respiratory Respiratory: bilateral: CTA - Cardiovascular Rhythm: regular Heart Sounds: Present: S1 & S2 - Extremities Extremities: No edema - Abdominal General gastrointestinal: soft, non-tender, normal bowel sounds - Psychiatric Psychiatric: agitated - Neurologic Neurologic: moves all extremities Results - Labs CBC & Chem 7: 09/09/19 15:05 09/12/19 07:31 Labs: Laboratory Last Values WBC 5.4 K/mm3 (4.5-11.0) 09/09/19 15:05 RBC 4.00 M/mm3 (3.65-5.03) 09/09/19 15:05 Hgb 10.1 gm/dl (11.8-15.2) L 09/09/19 15:05 Hct 31.9 % (35.5-45.6) L 09/09/19 15:05 MCV 80 fl (84-94) L 09/09/19 15:05 MCH 25 pg (28-32) L 09/09/19 15:05 MCHC 32 % (32-34) 09/09/19 15:05 RDW 16.6 % (13.2-15.2) H 09/09/19 15:05 Plt Count 633 K/mm3 (140-440) H 09/09/19 15:05 Lymph % (Auto) 19.8 % (13.4-35.0) 09/08/19 15:46 [place] % (Auto) 9.4 % (0.0-7.3) H 09/08/19 15:46 Eos % (Auto) 2.2 % (0.0-4.3) 09/08/19 15:46 Baso % (Auto) 0.7 % (0.0-1.8) 09/08/19 15:46 Lymph # 1.1 K/mm3 (1.2-5.4) L 09/08/19 15:46 [place] # 0.5 K/mm3 (0.0-0.8) 09/08/19 15:46 Eos # 0.1 K/mm3 (0.0-0.4) 09/08/19 15:46 Baso # 0.0 K/mm3 (0.0-0.1) 09/08/19 15:46 Seg Neutrophils % 67.9 % (40.0-70.0) 09/08/19 15:46 Seg Neutrophils # 3.9 K/mm3 (1.8-7.7) 09/08/19 15:46 Sodium 140 mmol/L (137-145) 09/12/19 07:31 Potassium 3.9 mmol/L (3.6-5.0) 09/12/19 07:31 Chloride 104.5 mmol/L (98-107) 09/12/19 07:31 Carbon Dioxide 23 mmol/L (22-30) 09/12/19 07:31 Anion Gap 16 mmol/L 09/12/19 07:31 BUN 11 mg/dL (9-20) 09/12/19 07:31 Creatinine 0.8 mg/dL (0.8-1.5) 09/12/19 07:31 Estimated GFR > 60 ml/min 09/12/19 07:31 BUN/Creatinine Ratio 14 % 09/12/19 07:31 Glucose 84 mg/dL (75-100) 09/12/19 07:31 Calcium 8.4 mg/dL (8.4-10.2) 09/12/19 07:31 Magnesium 1.70 mg/dL (1.7-2.3) 09/12/19 07:31 Iron 43 ug/dL (49-181) L 09/11/19 15:54 TIBC 211 mcg/dL (250-450) L 09/11/19 15:54 % Saturation 20.38 % 09/11/19 15:54 Transferrin 155 mg/dl (180-329) L 09/11/19 15:54 Total Bilirubin 0.20 mg/dL (0.1-1.2) 09/08/19 15:46 AST 51 units/L (5-40) H 09/08/19 15:46 ALT 41 units/L (7-56) 09/08/19 15:46 Alkaline Phosphatase 74 units/L (35-129) 09/08/19 15:46 Total Protein 6.1 g/dL (6.3-8.2) L 09/08/19 15:46 Albumin 3.3 g/dL (3.9-5) L 09/08/19 15:46 Albumin/Globulin Ratio 1.2 % 09/08/19 15:46 Vitamin B12 1123 pg/mL (211-911) H 09/11/19 00:37 TSH 2.940 mlU/mL (0.270-4.200) 09/08/19 15:46 Acetaminophen < 5.0 ug/mL (10.0-30.0) L 09/08/19 15:46 Plasma/Serum Alcohol < 0.01 % (0-0.07) 09/08/19 15:46 Active Medications - Current Medications Current Medications: Generic Name Dose Route Start Last Admin Trade Name Freq PRN Reason Stop Dose Admin Acetaminophen 650 mg 09/08/19 22:36 Tylenol PO Q4H PRN Pain MILD(1-3)/Fever >100.5/AYALA Famotidine 20 mg 09/12/19 10:00 09/13/19 09:43 Pepcid PO 20 mg BID MARILIN Administration Heparin Sodium (Porcine) 5,000 unit 09/09/19 10:00 09/13/19 09:43 Heparin SUB-Q 5,000 unit Q12HR MARILIN Administration Ondansetron HCl 4 mg 09/08/19 22:36 09/11/19 21:08 Zofran IV 4 mg Q8H PRN Administration Nausea And Vomiting Oxycodone/Acetaminophen 1 tab 09/08/19 22:36 09/11/19 23:30 Percocet 5/325 PO 1 tab Q6H PRN Administration Pain, Moderate (4-6) Sodium Chloride 10 ml 11/16/19 10:00 09/13/19 09:43 Sodium Chloride Flush Syringe 10 Ml IV Not Given BID MARILIN Sodium Chloride 10 ml 09/08/19 22:36 Sodium Chloride Flush Syringe 10 Ml IV PRN PRN LINE FLUSH Nutrition/Malnutrition Assess - Dietary Evaluation Nutrition/Malnutrition Findings: Nutrition Notes Start: 09/12/19 10:25 Freq: Status: Active Protocol: Document 09/12/19 10:25 CT (Rec: 09/12/19 10:58 CT [id number]) Co-Sign 09/12/19 10:25 LP Nutrition Notes Need for Assessment generated from: social media analyst,MST Initial or Follow up Assessment Other Pertinent Diagnosis AMS, Hypernatremia, Anemia, Hypokalemia, Poss. Dementia, Edema Current Diet Regular Diet Labs/Tests Reviewed Pertinent Medications Heparin Height 5 ft 5 in Weight 74.843 kg Combs Body Weight (kg) 61.81 BMI 27.4 Intake Prior to Admission Fair Subjective/Other Information Pt confused at time of visit. 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 Pt consumed 100% of breakfast, stating that it took him a long time to eat d/ t chewing issues. Noted edema , temporal, clavicle, and orbital wasting. Pt has restraints connected to the bed. Pt stated he lost wt, but unsure of how much and time frame. Discussed mechanical soft diet with pt. Burn Absent Trauma Absent GI Symptoms None Difficulty In Chewing Food Allergy No Current % PO Good (75-100%) Minimum of two criteria Yes Energy Intake (non-severe) <75% Estimated Energy Requirement >7 days Body Fat Depletion Mild depletion (non-severe) Muscle Mass Mild Depletion (non-severe) Fluid Accumulation Mild (non-severe) #1 Nutrition Diagnosis Malnutrition Etiology secondary to AMS As Evidenced by Signs and Symptoms <75% energy intake > 1 week, mild fat mass depletion, mild muscle mass depletion, and mild edema. Is patient on ventilator? No Is Patient Ambulatory and/or Out of Bed No REE-([facility]-confined to bed) [phone] Calculation Used for Recommendations [facility] Additional Notes Protein needs: 90-112 g/day (1 .2-1.5 g/kg/day) Fluid needs: per MD Nutrition Intervention Change Diet Order: Change to Mechanical Soft Goal #1 Meet >80% of energy and protein needs Goal #2 Wt. gain/maintenance Anticipated Discharge Needs: Mechanical Soft Diet Follow-Up By: 09/14/19 Additional Comments Follow up for PO intakes and ONS tolerance
--- NOTE | 2019-09-13 15:27 | Consultation ---
History of Present Illness - Reason for Consult Consult date: 09/13/19 Reason for consult: Mental Health Evaluation Requesting physician: ANÍBAL VALENCIA - Chief Complaint Chief complaint: "The patient is somewhat lethargic" - History of Present Psychiatric Illness 69 y.o. AA male who presented to the ER for AMS. Today the patient was somewhat lethargic. Per the MAR, the patient was given Haldol PRN. Several attempts was made to engage the patient, but was successful. Medications and Allergies Allergies Allergy/AdvReac Type Severity Reaction Status Date / Time No Known Allergies Allergy Unverified 09/08/19 12:27 Home Medications Medication Instructions Recorded Confirmed Last Taken Type Unobtainable 09/11/19 09/11/19 Unknown History Active Meds: Active Medications Acetaminophen (Tylenol) 650 mg PO Q4H PRN PRN Reason: Pain MILD(1-3)/Fever >100.5/AYALA Famotidine (Pepcid) 20 mg PO BID [facility] Last Admin: 09/13/19 09:43 Dose: 20 mg Documented by: Heparin Sodium (Porcine) (Heparin) 5,000 unit SUB-Q Q12HR [facility] Last Admin: 09/13/19 09:43 Dose: 5,000 unit Documented by: Ondansetron HCl (Zofran) 4 mg IV Q8H PRN PRN Reason: Nausea And Vomiting Last Admin: 09/11/19 21:08 Dose: 4 mg Documented by: Oxycodone/Acetaminophen (Percocet 5/325) 1 tab PO Q6H PRN PRN Reason: Pain, Moderate (4-6) Last Admin: 09/11/19 23:30 Dose: 1 tab Documented by: Sodium Chloride (Sodium Chloride Flush Syringe 10 Ml) 10 ml IV BID [facility] Last Admin: 09/13/19 09:43 Dose: Not Given Documented by: Sodium Chloride (Sodium Chloride Flush Syringe 10 Ml) 10 ml IV PRN PRN PRN Reason: LINE FLUSH Past psychiatric history - Past Medical History Past Medical History: other (Unable to obtain ) Past Surgical History: Other (Unable to obtain ) - past Psychiatric treatment and history psychiatric treatment history: Unable to obtain a psy hx and a fam psy hx. - Social History Social history: other (Unable to obtain ) Mental Status Exam - Vital signs Last Vital Signs Temp 97.8 F 09/13/19 13:19 Pulse 53 L 09/13/19 13:19 Resp 20 09/13/19 13:19 BP 115/58 09/13/19 13:19 Pulse Ox 97 09/13/19 13:19 - Exam Narrative exam: Unable to complete the MSE because the patient's condition. Results Result Diagrams: 09/09/19 15:05 09/12/19 07:31 All other labs normal. Assessment and Plan Assessment and plan: Impression: Today the patient was somewhat lethargic during the assessment. Neuro is following the patient. The patient wasn't in restraints. Recommendation/Plan: Attempt to reassess the patient in [address] Amilcar Rivera.
[2019-09-14] MEDS: HEPARIN 5,000 UNIT/1 ML VIAL SUB-Q SCH ×2 (09:16→23:20)
[2019-09-14] MEDS: FAMOTIDINE 20 MG TAB PO SCH ×2 (09:16→23:20)
--- NOTE | 2019-09-14 12:08 | Progress Note ---
Assessment and Plan Assessment and plan: / Acute metabolic encephalopathy probably 2/2 hypernatremia versus underlying possible vascular dementia psych disorder is a possibility: mental health consulted cont 4-point restraints normal B12, TSH CT head neg. MRI brain pending neurology following / Hypernatremia likely 2/2 dehydration resolved /Hypokalemia resolved /Anemia, likely due to chronic disease H/H stable / DVT prophylaxis On Heparin Disposition: MRI brain and mental health consult pending History Interval history: Pt continues to be in 4 point restraints due to severe agitation. He is alert and oriented x1 to person only Hospitalist Physical - Constitutional Vitals: Temp Pulse Resp BP Pulse Ox 97.4 F L 56 L 18 127/63 94 09/14/19 08:14 09/14/19 08:14 09/14/19 08:14 09/14/19 08:14 09/14/19 08:14 General appearance: Present: no acute distress - EENT Eyes: Present: PERRL, EOM intact ENT: hearing intact, clear oral mucosa - Neck Neck: Present: supple - Respiratory Respiratory effort: normal Respiratory: bilateral: CTA - Cardiovascular Rhythm: regular Heart Sounds: Present: S1 & S2 - Extremities Extremities: No edema - Abdominal General gastrointestinal: soft, non-tender, normal bowel sounds - Psychiatric Psychiatric: agitated - Neurologic Neurologic: moves all extremities Results - Labs CBC & Chem 7: 09/09/19 15:05 09/12/19 07:31 Labs: Laboratory Last Values WBC 5.4 K/mm3 (4.5-11.0) 09/09/19 15:05 RBC 4.00 M/mm3 (3.65-5.03) 09/09/19 15:05 Hgb 10.1 gm/dl (11.8-15.2) L 09/09/19 15:05 Hct 31.9 % (35.5-45.6) L 09/09/19 15:05 MCV 80 fl (84-94) L 09/09/19 15:05 MCH 25 pg (28-32) L 09/09/19 15:05 MCHC 32 % (32-34) 09/09/19 15:05 RDW 16.6 % (13.2-15.2) H 09/09/19 15:05 Plt Count 633 K/mm3 (140-440) H 09/09/19 15:05 Lymph % (Auto) 19.8 % (13.4-35.0) 09/08/19 15:46 [place] % (Auto) 9.4 % (0.0-7.3) H 09/08/19 15:46 Eos % (Auto) 2.2 % (0.0-4.3) 09/08/19 15:46 Baso % (Auto) 0.7 % (0.0-1.8) 09/08/19 15:46 Lymph # 1.1 K/mm3 (1.2-5.4) L 09/08/19 15:46 [place] # 0.5 K/mm3 (0.0-0.8) 09/08/19 15:46 Eos # 0.1 K/mm3 (0.0-0.4) 09/08/19 15:46 Baso # 0.0 K/mm3 (0.0-0.1) 09/08/19 15:46 Seg Neutrophils % 67.9 % (40.0-70.0) 09/08/19 15:46 Seg Neutrophils # 3.9 K/mm3 (1.8-7.7) 09/08/19 15:46 Sodium 140 mmol/L (137-145) 09/12/19 07:31 Potassium 3.9 mmol/L (3.6-5.0) 09/12/19 07:31 Chloride 104.5 mmol/L (98-107) 09/12/19 07:31 Carbon Dioxide 23 mmol/L (22-30) 09/12/19 07:31 Anion Gap 16 mmol/L 09/12/19 07:31 BUN 11 mg/dL (9-20) 09/12/19 07:31 Creatinine 0.8 mg/dL (0.8-1.5) 09/12/19 07:31 Estimated GFR > 60 ml/min 09/12/19 07:31 BUN/Creatinine Ratio 14 % 09/12/19 07:31 Glucose 84 mg/dL (75-100) 09/12/19 07:31 Calcium 8.4 mg/dL (8.4-10.2) 09/12/19 07:31 Magnesium 1.70 mg/dL (1.7-2.3) 09/12/19 07:31 Iron 43 ug/dL (49-181) L 09/11/19 15:54 TIBC 211 mcg/dL (250-450) L 09/11/19 15:54 % Saturation 20.38 % 09/11/19 15:54 Transferrin 155 mg/dl (180-329) L 09/11/19 15:54 Total Bilirubin 0.20 mg/dL (0.1-1.2) 09/08/19 15:46 AST 51 units/L (5-40) H 09/08/19 15:46 ALT 41 units/L (7-56) 09/08/19 15:46 Alkaline Phosphatase 74 units/L (35-129) 09/08/19 15:46 Total Protein 6.1 g/dL (6.3-8.2) L 09/08/19 15:46 Albumin 3.3 g/dL (3.9-5) L 09/08/19 15:46 Albumin/Globulin Ratio 1.2 % 09/08/19 15:46 Vitamin B12 1123 pg/mL (211-911) H 09/11/19 00:37 TSH 2.940 mlU/mL (0.270-4.200) 09/08/19 15:46 Acetaminophen < 5.0 ug/mL (10.0-30.0) L 09/08/19 15:46 Plasma/Serum Alcohol < 0.01 % (0-0.07) 09/08/19 15:46 Active Medications - Current Medications Current Medications: Generic Name Dose Route Start Last Admin Trade Name Freq PRN Reason Stop Dose Admin Acetaminophen 650 mg 09/08/19 22:36 Tylenol PO Q4H PRN Pain MILD(1-3)/Fever >100.5/AYALA Famotidine 20 mg 09/12/19 10:00 09/14/19 09:16 Pepcid PO 20 mg BID MARILIN Administration Heparin Sodium (Porcine) 5,000 unit 09/09/19 10:00 09/14/19 09:16 Heparin SUB-Q 5,000 unit Q12HR MARILIN Administration Ondansetron HCl 4 mg 09/08/19 22:36 09/11/19 21:08 Zofran IV 4 mg Q8H PRN Administration Nausea And Vomiting Oxycodone/Acetaminophen 1 tab 09/08/19 22:36 09/11/19 23:30 Percocet 5/325 PO 1 tab Q6H PRN Administration Pain, Moderate (4-6) Sodium Chloride 10 ml 09/09/19 10:00 09/14/19 09:19 Sodium Chloride Flush Syringe 10 Ml IV Not Given BID MARILIN Sodium Chloride 10 ml 09/08/19 22:36 Sodium Chloride Flush Syringe 10 Ml IV PRN PRN LINE FLUSH Nutrition/Malnutrition Assess - Dietary Evaluation Nutrition/Malnutrition Findings: Nutrition Notes Start: 09/12/19 10:25 Freq: Status: Active Protocol: Document 09/14/19 10:47 CT (Rec: 09/14/19 11:37 CT [id number]) Co-Sign 09/14/19 10:47 LM Nutrition Notes Initial or Follow up Reassessment Other Pertinent Diagnosis AMS, Hypernatremia, Anemia, Hypokalemia, Poss. Dementia, Edema Current Diet Mechanical Soft Labs/Tests Reviewed Pertinent Medications Heparin Height 5 ft 5 in Weight 74.3 kg [place] Body Weight (kg) 61.81 BMI 27.2 Subjective/Other Information afternoon babysitter in room at time of visit. Pt is disoriented and not coherent. afternoon babysitter stated that he only drank some coffee for breakfast and was unsure of dinner intake. Asked pt if he wanted an Ensure, he was unable to answer properly. Since he is not eating, Ensure was ordered . Burn Absent Trauma Absent GI Symptoms None Difficulty In Chewing Food Allergy No Current % PO Negligible Minimum of two criteria Yes Energy Intake (non-severe) <75% Estimated Energy Requirement >7 days Body Fat Depletion Mild depletion (non-severe) Muscle Mass Mild Depletion (non-severe) Fluid Accumulation Mild (non-severe) #1 Nutrition Diagnosis Malnutrition Diagnosis Progress(for reassessment Continues documentation) Is patient on ventilator? No Is Patient Ambulatory and/or Out of Bed No REE-([facility]-confined to bed) [phone] Calculation Used for Recommendations [facility] Additional Notes Protein needs: 90-112 g/day (1 .2-1.5 g/kg/day) Fluid needs: per Nutrition Intervention Change Diet Order: Continue current diet Add Supplement/Snack (indicate name/kcal Add Ensure Vanilla Daily /protein ) Provides kCal: 350 Provides Protein (gm) 20 Goal #1 Meet >80% of energy and protein needs Goal #2 Wt. gain/maintenance Anticipated Discharge Needs: Mechanical Soft Diet Follow-Up By: 09/18/19 Additional Comments Follow up for PO intake and ONS tolerance/need for additional ONS
[2019-09-14] MEDS ORDERED: LORazepam 2 MG/ML VIAL IV NR (12:30)
--- NOTE | 2019-09-14 14:48 | Progress Note ---
Subjective - Reason for Consult Consult date: 09/14/19 Reason for consult: Psychiatry Follow-up - Chief Complaint Chief complaint: "Hello" 69 y.o. AA male who presented to the ER for AMS. Today the patient was calm, but confused during the assessment. Most of his answers to questions were not logical. He could not ID the current/past [place] Presidents when asked. He was able to state his . Per the staff, the patient didn't sleep well last night. Also, the patient was in restraints. Overall, the patient's insight is limited. Mental Status Exam - Vital signs Last Vital Signs Temp 97.4 F L 09/14/19 14:15 Pulse 93 H 09/14/19 14:15 Resp 20 09/14/19 14:15 BP 154/101 09/14/19 14:15 Pulse Ox 95 09/14/19 14:15 - Exam Narrative exam: MSE: Appearance: calm, disheveled Behavior: regular eye contact Speech: regular rate and tone Mood:: "okay" Affect: flat Thought Process: confused Thought Content: no gestures of SI/HI's Motor Activity: ambulatory Cognition: alert Insight: limited Judgment: poor Assessment and Plan Impression: Unspecified Neuro Cog DO. Today the patient was confused during the assessment. Neuro is following the patient. The patient was in restraints. DDx: Dementia, R/O Delirium Recommendation/Plan: Start Melatonin 5 mg PO HS for sleep. Recommend Delirium precautions below: 1. Frequently reorient patient and involve him/her in their care (simple explanations of procedures, tests, medications). 2. Lights on and shades open during daytime hours. 3. Write date and goals of care in a visible place. 4. Try to avoid unnecessary interruptions to sleep during nighttime hours. 5. Obtain glasses, hearing aids from home if patient uses these at baseline. 6. Avoid medications that may exacerbate delirium (especially narcotics, benzodiazepines, barbiturates, ambien, lunesta, and medications with excessive anticholinergic property). Staffed with Dr Amilcar Rivera.
--- NOTE | 2019-09-15 08:19 | Progress Note ---
Subjective - Reason for Consult Consult date: 09/15/19 Reason for consult: Psychiatry Follow-up - Chief Complaint Chief complaint: "The patient mumbles" 69 y.o. AA male who presented to the ER for AMS. Today the patient was calm, but still confused during the assessment. He was asked several questions, but he would only mumble. Per the sitter, no behavioral disturbances by the patient on her shift (AM). No gestures of SI/HI's. Mental Status Exam - Vital signs Last Vital Signs Temp 97.1 F L 09/15/19 03:36 Pulse 56 L 09/15/19 03:36 Resp 18 09/15/19 03:36 BP 126/73 09/15/19 03:36 Pulse Ox 95 09/15/19 03:36 - Exam Narrative exam: Unable to complete the MSE because of the patient's condition. Assessment and Plan Impression: Unspecified Neuro Cog DO. Today the patient was still confused during the assessment. Neuro is following the patient. Pending MRI of the brain. DDx: Dementia, R/O Delirium Recommendation/Plan: Continue Melatonin 5 mg PO HS for sleep. Recommend Delirium precautions below: 1. Frequently reorient patient and involve him/her in their care (simple explanations of procedures, tests, medications). 2. Lights on and shades open during daytime hours. 3. Write date and goals of care in a visible place. 4. Try to avoid unnecessary interruptions to sleep during nighttime hours. 5. Obtain glasses, hearing aids from home if patient uses these at baseline. 6. Avoid medications that may exacerbate delirium (especially narcotics, benzodiazepines, barbiturates, ambien, lunesta, and medications with excessive anticholinergic property). Staffed with Dr Amilcar Rivera.
[2019-09-15] MEDS: HEPARIN 5,000 UNIT/1 ML VIAL SUB-Q SCH ×2 (09:30→22:02)
[2019-09-15] MEDS: FAMOTIDINE 20 MG TAB PO SCH ×2 (09:30→22:01)
--- NOTE | 2019-09-15 11:36 | Progress Note ---
Assessment and Plan Assessment and plan: / Acute metabolic encephalopathy probably 2/2 hypernatremia versus underlying possible vascular dementia psych disorder is a possibility: mental health following, appreciate cont restraints and sitter normal B12, TSH CT head neg. MRI brain to be done today neurology consulted / Hypernatremia likely 2/2 dehydration resolved /Hypokalemia resolved /Anemia, likely due to chronic disease H/H stable / DVT prophylaxis On Heparin Disposition: MRI brain pending. History Interval history: Pt was in 2-point restraint when I saw him this morning and he was sleeping. He currently has a sitter Hospitalist Physical - Constitutional Vitals: Temp Pulse Resp BP Pulse Ox 98.2 F 59 L 18 129/78 94 09/15/19 08:40 09/15/19 08:40 09/15/19 08:40 09/15/19 08:40 09/15/19 08:40 General appearance: Present: no acute distress - EENT Eyes: Present: EOM intact ENT: clear oral mucosa - Neck Neck: Present: supple - Respiratory Respiratory effort: normal Respiratory: bilateral: CTA - Cardiovascular Rhythm: regular Heart Sounds: Present: S1 & S2 - Extremities Extremities: No edema - Abdominal General gastrointestinal: soft, non-tender, normal bowel sounds - Psychiatric Psychiatric: other (sleeping when i saw him) - Neurologic Neurologic: moves all extremities Results - Labs CBC & Chem 7: 09/09/19 15:05 09/12/19 07:31 Labs: Laboratory Last Values WBC 5.4 K/mm3 (4.5-11.0) 09/09/19 15:05 RBC 4.00 M/mm3 (3.65-5.03) 09/09/19 15:05 Hgb 10.1 gm/dl (11.8-15.2) L 09/09/19 15:05 Hct 31.9 % (35.5-45.6) L 09/09/19 15:05 MCV 80 fl (84-94) L 09/09/19 15:05 MCH 25 pg (28-32) L 09/09/19 15:05 MCHC 32 % (32-34) 09/09/19 15:05 RDW 16.6 % (13.2-15.2) H 09/09/19 15:05 Plt Count 633 K/mm3 (140-440) H 09/09/19 15:05 Lymph % (Auto) 19.8 % (13.4-35.0) 09/08/19 15:46 [place] % (Auto) 9.4 % (0.0-7.3) H 09/08/19 15:46 Eos % (Auto) 2.2 % (0.0-4.3) 09/08/19 15:46 Baso % (Auto) 0.7 % (0.0-1.8) 09/08/19 15:46 Lymph # 1.1 K/mm3 (1.2-5.4) L 09/08/19 15:46 [place] # 0.5 K/mm3 (0.0-0.8) 09/08/19 15:46 Eos # 0.1 K/mm3 (0.0-0.4) 09/08/19 15:46 Baso # 0.0 K/mm3 (0.0-0.1) 09/08/19 15:46 Seg Neutrophils % 67.9 % (40.0-70.0) 09/08/19 15:46 Seg Neutrophils # 3.9 K/mm3 (1.8-7.7) 09/08/19 15:46 Sodium 140 mmol/L (137-145) 09/12/19 07:31 Potassium 3.9 mmol/L (3.6-5.0) 09/12/19 07:31 Chloride 104.5 mmol/L (98-107) 09/12/19 07:31 Carbon Dioxide 23 mmol/L (22-30) 09/12/19 07:31 Anion Gap 16 mmol/L 09/12/19 07:31 BUN 11 mg/dL (9-20) 09/12/19 07:31 Creatinine 0.8 mg/dL (0.8-1.5) 09/12/19 07:31 Estimated GFR > 60 ml/min 09/12/19 07:31 BUN/Creatinine Ratio 14 % 09/12/19 07:31 Glucose 84 mg/dL (75-100) 09/12/19 07:31 Calcium 8.4 mg/dL (8.4-10.2) 09/12/19 07:31 Magnesium 1.70 mg/dL (1.7-2.3) 09/12/19 07:31 Iron 43 ug/dL (49-181) L 09/11/19 15:54 TIBC 211 mcg/dL (250-450) L 09/11/19 15:54 % Saturation 20.38 % 09/11/19 15:54 Transferrin 155 mg/dl (180-329) L 09/11/19 15:54 Total Bilirubin 0.20 mg/dL (0.1-1.2) 09/08/19 15:46 AST 51 units/L (5-40) H 09/08/19 15:46 ALT 41 units/L (7-56) 09/08/19 15:46 Alkaline Phosphatase 74 units/L (35-129) 09/08/19 15:46 Total Protein 6.1 g/dL (6.3-8.2) L 09/08/19 15:46 Albumin 3.3 g/dL (3.9-5) L 09/08/19 15:46 Albumin/Globulin Ratio 1.2 % 09/08/19 15:46 Vitamin B12 1123 pg/mL (211-911) H 09/11/19 00:37 TSH 2.940 mlU/mL (0.270-4.200) 09/08/19 15:46 Acetaminophen < 5.0 ug/mL (10.0-30.0) L 09/08/19 15:46 Plasma/Serum Alcohol < 0.01 % (0-0.07) 09/08/19 15:46 Active Medications - Current Medications Current Medications: Generic Name Dose Route Start Last Admin Trade Name Freq PRN Reason Stop Dose Admin Acetaminophen 650 mg 09/08/19 22:36 Tylenol PO Q4H PRN Pain MILD(1-3)/Fever >100.5/AYALA Famotidine 20 mg 09/12/19 10:00 09/15/19 09:30 Pepcid PO 20 mg BID MARILIN Administration Heparin Sodium (Porcine) 5,000 unit 09/09/19 10:00 09/15/19 09:30 Heparin SUB-Q 5,000 unit Q12HR MARILIN Administration Melatonin 5 mg 09/15/19 22:00 Melatonin PO QHS MARILIN Ondansetron HCl 4 mg 09/08/19 22:36 09/11/19 21:08 Zofran IV 4 mg Q8H PRN Administration Nausea And Vomiting Oxycodone/Acetaminophen 1 tab 09/08/19 22:36 09/11/19 23:30 Percocet 5/325 PO 1 tab Q6H PRN Administration Pain, Moderate (4-6) Sodium Chloride 10 ml 09/09/19 10:00 09/15/19 09:30 Sodium Chloride Flush Syringe 10 Ml IV 10 ml BID MARILIN Administration Sodium Chloride 10 ml 09/08/19 22:36 Sodium Chloride Flush Syringe 10 Ml IV PRN PRN LINE FLUSH Nutrition/Malnutrition Assess - Dietary Evaluation Nutrition/Malnutrition Findings: Nutrition Notes Start: 09/12/19 10:25 Freq: Status: Active Protocol: Document 09/14/19 10:47 CT (Rec: 09/14/19 11:37 CT [id number]) Co-Sign 09/14/19 10:47 LM Nutrition Notes Initial or Follow up Reassessment Other Pertinent Diagnosis AMS, Hypernatremia, Anemia, Hypokalemia, Poss. Dementia, Edema Current Diet Mechanical Soft Labs/Tests Reviewed Pertinent Medications Heparin Height 5 ft 5 in Weight 74.3 kg [place] Body Weight (kg) 61.81 BMI 27.2 Subjective/Other Information utility accounts director in room at time of visit. Pt is disoriented and not coherent. utility accounts director stated that he only drank some coffee for breakfast and was unsure of dinner intake. Asked pt if he wanted an Ensure, he was unable to answer properly. Since he is not eating, Ensure was ordered . Burn Absent Trauma Absent GI Symptoms None Difficulty In Chewing Food Allergy No Current % PO Negligible Minimum of two criteria Yes Energy Intake (non-severe) <75% Estimated Energy Requirement >7 days Body Fat Depletion Mild depletion (non-severe) Muscle Mass Mild Depletion (non-severe) Fluid Accumulation Mild (non-severe) #1 Nutrition Diagnosis Malnutrition Diagnosis Progress(for reassessment Continues documentation) Is patient on ventilator? No Is Patient Ambulatory and/or Out of Bed No REE-([facility]-confined to bed) 0238.164 Calculation Used for Recommendations [facility] Additional Notes Protein needs: 90-112 g/day (1 .2-1.5 g/kg/day) Fluid needs: per MD Nutrition Intervention Change Diet Order: Continue current diet Add Supplement/Snack (indicate name/kcal Add Ensure Vanilla Daily /protein ) Provides kCal: 350 Provides Protein (gm) 20 Goal #1 Meet >80% of energy and protein needs Goal #2 Wt. gain/maintenance Anticipated Discharge Needs: Mechanical Soft Diet Follow-Up By: 09/18/19 Additional Comments Follow up for PO intake and ONS tolerance/need for additional ONS
--- NOTE | 2019-09-15 16:23 | Magnetic Resonance Report ---
MRI BRAIN WITHOUT CONTRAST INDICATION / CLINICAL INFORMATION: encephalopathy. TECHNIQUE: Multiplanar, multisequence MR images of the brain were obtained. Examination was not completed. Patie nt was unable to cooperate for this study. Patient climbed out of the scanner during the examination according to the patient's chief medical technologist. This study includes diffusion weighted sequences, T1-raquel ghted sequences obtained in the axial, sagittal and coronal planes and gradient echo T2*weighted imag es which are degraded by patient motion artifact. This study does not include FLAIR or T2-weighted sp in-echo sequences. COMPARISON: Head CT 09/08/2019. FINDINGS: BRAIN / INTRACRANIAL CONTENTS: Ventricles and cortical sulci are normal in size and configuration. Th ere is no mass effect. No evidence of intracranial hemorrhage or extra-axial fluid collection is seen . No areas of abnormal brain parenchymal signal intensity are identified on this limited study, howev er, FLAIR and T2-weighted imaging was not obtained as noted above. This limits evaluation for demyeli nating disease, encephalomalacia and microvascular ischemia. There is no indication of remote cortica l infarction. Diffusion weighted scans are negative. There is no indication of acute ischemic injury. The brainstem and cerebellum have an unremarkable appearance. CRANIOCERVICAL JUNCTION: No abnormalities are identified at the craniocervical junction. VASCULAR FLOW-VOIDS: Normal flow-voids are present within the major intracranial vessels. ORBITS: The orbits have an unremarkable appearance. SINUSES / MASTOIDS: There is no indication of inflammatory disease in the paranasal sinuses or mastoi d air cells. ADDITIONAL FINDINGS: None. IMPRESSION: 1. Patient was unable to complete this examination which is a limited study as described in detail ab ove. 2. No abnormalities are identified on this limited MRI brain examination. Signer Name: Rosas Hubbard MD Signed: 09/15/2019 4:18 PM Workstation Name: [id number]
[2019-09-15] MEDS: oxyCODONE /ACETAMINOPHEN 5-325MG TAB PO PRN (22:01)
[2019-09-15] MEDS: MELATONIN 5 MG TAB PO SCH (22:01)
[2019-09-16] MEDS: FAMOTIDINE 20 MG TAB PO SCH ×2 (10:21→23:33)
[2019-09-16] MEDS: HEPARIN 5,000 UNIT/1 ML VIAL SUB-Q SCH ×2 (10:21→23:53)
--- NOTE | 2019-09-16 12:31 | Progress Note ---
Assessment and Plan Assessment and plan: / Acute metabolic encephalopathy probably 2/2 dehydration versus underlying possible vascular dementia psych disorder is a possibility mental health consulted and recommendations include: 1. Melatonin 5 mg PO HS for sleep. 2. Frequently reorient patient and involve him/her in their care (simple explana tions of procedures, tests, medications). 3. Lights on and shades open during daytime hours. 4. Write date and goals of care in a visible place. 5. Try to avoid unnecessary interruptions to sleep during nighttime hours. 6. Avoid medications that may exacerbate delirium (especially narcotics, benzodi azepines, barbiturates, ambien, lunesta, and medications with excessive anticholinergic property). cont sitter, now off restraints normal B12, TSH CT head neg. MRI brain neg neurology consulted / Hypernatremia likely 2/2 dehydration resolved /Hypokalemia resolved /Anemia, likely due to chronic disease H/H stable / DVT prophylaxis On Heparin Patient is medically stable for discharge. Disposition per mental health team and SW History Interval history: Patient off restraints this morning but continues to be confused Hospitalist Physical - Constitutional Vitals: Temp Pulse Resp BP Pulse Ox 98.3 F 71 20 117/54 93 09/16/19 08:54 09/16/19 08:54 09/16/19 08:54 09/16/19 08:54 09/16/19 08:54 General appearance: Present: no acute distress - EENT Eyes: Present: PERRL, EOM intact ENT: hearing intact, clear oral mucosa - Neck Neck: Present: supple - Respiratory Respiratory effort: normal Respiratory: bilateral: CTA - Cardiovascular Rhythm: regular Heart Sounds: Present: S1 & S2 - Extremities Extremities: No edema - Abdominal General gastrointestinal: soft, non-tender, normal bowel sounds - Integumentary Integumentary: Present: warm, dry - Neurologic Neurologic: moves all extremities Results - Labs CBC & Chem 7: 09/09/19 15:05 09/12/19 07:31 Labs: Laboratory Last Values WBC 5.4 K/mm3 (4.5-11.0) 09/09/19 15:05 RBC 4.00 M/mm3 (3.65-5.03) 09/09/19 15:05 Hgb 10.1 gm/dl (11.8-15.2) L 09/09/19 15:05 Hct 31.9 % (35.5-45.6) L 09/09/19 15:05 MCV 80 fl (84-94) L 09/09/19 15:05 MCH 25 pg (28-32) L 09/09/19 15:05 MCHC 32 % (32-34) 09/09/19 15:05 RDW 16.6 % (13.2-15.2) H 09/09/19 15:05 Plt Count 633 K/mm3 (140-440) H 09/09/19 15:05 Lymph % (Auto) 19.8 % (13.4-35.0) 09/08/19 15:46 [place] % (Auto) 9.4 % (0.0-7.3) H 09/08/19 15:46 Eos % (Auto) 2.2 % (0.0-4.3) 09/08/19 15:46 Baso % (Auto) 0.7 % (0.0-1.8) 09/08/19 15:46 Lymph # 1.1 K/mm3 (1.2-5.4) L 09/08/19 15:46 [place] # 0.5 K/mm3 (0.0-0.8) 09/08/19 15:46 Eos # 0.1 K/mm3 (0.0-0.4) 09/08/19 15:46 Baso # 0.0 K/mm3 (0.0-0.1) 09/08/19 15:46 Seg Neutrophils % 67.9 % (40.0-70.0) 09/08/19 15:46 Seg Neutrophils # 3.9 K/mm3 (1.8-7.7) 09/08/19 15:46 Sodium 140 mmol/L (137-145) 09/12/19 07:31 Potassium 3.9 mmol/L (3.6-5.0) 09/12/19 07:31 Chloride 104.5 mmol/L (98-107) 09/12/19 07:31 Carbon Dioxide 23 mmol/L (22-30) 09/12/19 07:31 Anion Gap 16 mmol/L 09/12/19 07:31 BUN 11 mg/dL (9-20) 09/12/19 07:31 Creatinine 0.8 mg/dL (0.8-1.5) 09/12/19 07:31 Estimated GFR > 60 ml/min 09/12/19 07:31 BUN/Creatinine Ratio 14 % 09/12/19 07:31 Glucose 84 mg/dL (75-100) 09/12/19 07:31 Calcium 8.4 mg/dL (8.4-10.2) 09/12/19 07:31 Magnesium 1.70 mg/dL (1.7-2.3) 09/12/19 07:31 Iron 43 ug/dL (49-181) L 09/11/19 15:54 TIBC 211 mcg/dL (250-450) L 09/11/19 15:54 % Saturation 20.38 % 09/11/19 15:54 Transferrin 155 mg/dl (180-329) L 09/11/19 15:54 Total Bilirubin 0.20 mg/dL (0.1-1.2) 09/08/19 15:46 AST 51 units/L (5-40) H 09/08/19 15:46 ALT 41 units/L (7-56) 09/08/19 15:46 Alkaline Phosphatase 74 units/L (35-129) 09/08/19 15:46 Total Protein 6.1 g/dL (6.3-8.2) L 09/08/19 15:46 Albumin 3.3 g/dL (3.9-5) L 09/08/19 15:46 Albumin/Globulin Ratio 1.2 % 09/08/19 15:46 Vitamin B12 1123 pg/mL (211-911) H 09/11/19 00:37 TSH 2.940 mlU/mL (0.270-4.200) 09/08/19 15:46 Acetaminophen < 5.0 ug/mL (10.0-30.0) L 09/08/19 15:46 Plasma/Serum Alcohol < 0.01 % (0-0.07) 09/08/19 15:46 Active Medications - Current Medications Current Medications: Generic Name Dose Route Start Last Admin Trade Name Freq PRN Reason Stop Dose Admin Acetaminophen 650 mg 09/08/19 22:36 Tylenol PO Q4H PRN Pain MILD(1-3)/Fever >100.5/AYALA Famotidine 20 mg 09/12/19 10:00 09/16/19 10:21 Pepcid PO 20 mg BID MARILIN Administration Heparin Sodium (Porcine) 5,000 unit 09/09/19 10:00 09/16/19 10:21 Heparin SUB-Q 5,000 unit Q12HR MARILIN Administration Melatonin 5 mg 09/15/19 22:00 09/15/19 22:01 Melatonin PO 5 mg QHS MARILIN Administration Ondansetron HCl 4 mg 09/08/19 22:36 09/11/19 21:08 Zofran IV 4 mg Q8H PRN Administration Nausea And Vomiting Oxycodone/Acetaminophen 1 tab 09/08/19 22:36 09/15/19 22:01 Percocet 5/325 PO 1 tab Q6H PRN Administration Pain, Moderate (4-6) Sodium Chloride 10 ml 09/09/19 10:00 09/16/19 10:22 Sodium Chloride Flush Syringe 10 Ml IV 10 ml BID MARILIN Administration Sodium Chloride 10 ml 09/08/19 22:36 Sodium Chloride Flush Syringe 10 Ml IV PRN PRN LINE FLUSH Nutrition/Malnutrition Assess - Dietary Evaluation Nutrition/Malnutrition Findings: Nutrition Notes Start: 09/12/19 10:25 Freq: Status: Active Protocol: Document 09/14/19 10:47 CT (Rec: 09/14/19 11:37 CT [id number]) Co-Sign 09/14/19 10:47 LM Nutrition Notes Initial or Follow up Reassessment Other Pertinent Diagnosis AMS, Hypernatremia, Anemia, Hypokalemia, Poss. Dementia, Edema Current Diet Mechanical Soft Labs/Tests Reviewed Pertinent Medications Heparin Height 5 ft 5 in Weight 74.3 kg [place] Body Weight (kg) 61.81 BMI 27.2 Subjective/Other Information venue manager in room at time of visit. Pt is disoriented and not coherent. venue manager stated that he only drank some coffee for breakfast and was unsure of dinner intake. Asked pt if he wanted an Ensure, he was unable to answer properly. Since he is not eating, Ensure was ordered . Burn Absent Trauma Absent GI Symptoms None Difficulty In Chewing Food Allergy No Current % PO Negligible Minimum of two criteria Yes Energy Intake (non-severe) <75% Estimated Energy Requirement >7 days Body Fat Depletion Mild depletion (non-severe) Muscle Mass Mild Depletion (non-severe) Fluid Accumulation Mild (non-severe) #1 Nutrition Diagnosis Malnutrition Diagnosis Progress(for reassessment Continues documentation) Is patient on ventilator? No Is Patient Ambulatory and/or Out of Bed No REE-([facility]-confined to bed) [phone] Calculation Used for Recommendations [facility] Additional Notes Protein needs: 90-112 g/day (1 .2-1.5 g/kg/day) Fluid needs: per MD Nutrition Intervention Change Diet Order: Continue current diet Add Supplement/Snack (indicate name/kcal Add Ensure Vanilla Daily /protein ) Provides kCal: 350 Provides Protein (gm) 20 Goal #1 Meet >80% of energy and protein needs Goal #2 Wt. gain/maintenance Anticipated Discharge Needs: Mechanical Soft Diet Follow-Up By: 09/18/19 Additional Comments Follow up for PO intake and ONS tolerance/need for additional ONS
--- NOTE | 2019-09-16 12:50 | Progress Note ---
Subjective - Reason for Consult Consult date: 09/16/19 Reason for consult: Mental health Evaluation Requesting physician: NICOLE KAPADIA - Chief Complaint Chief complaint: "The patient mumbles" 69 y.o. AA male who presented to the ER for AMS. Today the patient was mildly agitate, but still confused during the assessment. Patient very disorganized today. He endorses auditory and visual hallucinations. Patient is pulling leads off, responding to internal stimuli. The nurse and sitter reports increased confusion with agitation. Mental Status Exam - Vital signs Last Vital Signs Temp 98.3 F 09/16/19 08:54 Pulse 61 09/16/19 10:00 Resp 20 09/16/19 08:54 BP 117/54 09/16/19 08:54 Pulse Ox 96 09/16/19 10:00 - Exam Orientation: person Affect: anxious, agitated Mood: anxious Thought content: delusions Thought Process: Disorganized Perceptions: visual, auditory Speech: pressured Concentration: distractible Motor activity: restless Level of consciousness: confused Assessment and Plan Impression: Unspecified Neuro Cog DO. Today the patient was still confused during the assessment. Neuro is following the patient. Pending MRI of the brain. Patient is more agitated today we will add nelia irvin DDx: Dementia, R/O Delirium Recommendation/Plan: Continue Melatonin 5 mg PO HS for sleep. Recommend Delirium precautions below: 1. Frequently reorient patient and involve him/her in their care (simple explanations of procedures, tests, medications). 2. Lights on and shades open during daytime hours. 3. Write date and goals of care in a visible place. 4. Try to avoid unnecessary interruptions to sleep during nighttime hours. 5. Obtain glasses, hearing aids from home if patient uses these at baseline. 6. Avoid medications that may exacerbate delirium (especially narcotics, benzodiazepines, barbiturates, ambien, lunesta, and medications with excessive anticholinergic property). Staffed with Dr Amilcar Rivera.
[2019-09-16] MEDS: ZIPRASIDONE MESYLATE 20 MG VIAL IM PRN (15:21)
[2019-09-16] MEDS: MELATONIN 5 MG TAB PO SCH (23:33)
[2019-09-16] MEDS: oxyCODONE /ACETAMINOPHEN 5-325MG TAB PO PRN (23:34)
[2019-09-17 06:28] LABS: BUN/Creatinine Ratio 21; Blood Urea Nitrogen 19 mg/dL (9-20); Calcium 8.7 mg/dL (8.4-10.2); Hemolysis Index 6
[2019-09-17] MEDS: oxyCODONE /ACETAMINOPHEN 5-325MG TAB PO PRN (06:38)
[2019-09-17] MEDS: ZIPRASIDONE MESYLATE 20 MG VIAL IM PRN (10:43)
--- NOTE | 2019-09-17 11:38 | Progress Note ---
Assessment and Plan Assessment and plan: / Acute metabolic encephalopathy probably 2/2 dehydration versus underlying possible vascular dementia Underlying psych disorder is also a possibility mental health consulted and recommendations include: 1. Melatonin 5 mg PO HS for sleep 2. Frequently reorient patient and involve him/her in their care (simple explanations of procedures, tests, medications). 3. Lights on and shades open during daytime hours. 4. Write date and goals of care in a visible place. 5. Try to avoid unnecessary interruptions to sleep during nighttime hours. 6. Avoid medications that may exacerbate delirium (especially narcotics, benzodiazepines, barbiturates, ambien, lunesta, and medications with excessive anticholinergic property). cont sitter, now off restraints normal B12, TSH CT head neg. MRI brain neg neurology consulted / Hypernatremia likely 2/2 dehydration resolved /Hypokalemia resolved /Anemia, likely due to chronic disease H/H stable / DVT prophylaxis On Heparin Patient is medically cleared for discharge. Disposition per mental health team and SW History Interval history: Patient noted to be severely agitated today. Hospitalist Physical - Constitutional Vitals: Temp Pulse Resp BP Pulse Ox 97.9 F 57 L 20 141/59 98 09/17/19 04:12 09/17/19 04:12 09/17/19 06:38 09/17/19 04:12 09/17/19 04:12 General appearance: Present: no acute distress - EENT ENT: hearing intact, clear oral mucosa - Neck Neck: Present: supple - Respiratory Respiratory: bilateral: CTA - Cardiovascular Rhythm: regular Heart Sounds: Present: S1 & S2 - Psychiatric Psychiatric: agitated - Neurologic Neurologic: other (confused) Results - Labs CBC & Chem 7: 09/09/19 15:05 09/17/19 05:20 Labs: Laboratory Last Values WBC 5.4 K/mm3 (4.5-11.0) 09/09/19 15:05 RBC 4.00 M/mm3 (3.65-5.03) 09/09/19 15:05 Hgb 10.1 gm/dl (11.8-15.2) L 09/09/19 15:05 Hct 31.9 % (35.5-45.6) L 09/09/19 15:05 MCV 80 fl (84-94) L 09/09/19 15:05 MCH 25 pg (28-32) L 09/09/19 15:05 MCHC 32 % (32-34) 09/09/19 15:05 RDW 16.6 % (13.2-15.2) H 09/09/19 15:05 Plt Count 633 K/mm3 (140-440) H 09/09/19 15:05 Lymph % (Auto) 19.8 % (13.4-35.0) 09/08/19 15:46 [place] % (Auto) 9.4 % (0.0-7.3) H 09/08/19 15:46 Eos % (Auto) 2.2 % (0.0-4.3) 09/08/19 15:46 Baso % (Auto) 0.7 % (0.0-1.8) 09/08/19 15:46 Lymph # 1.1 K/mm3 (1.2-5.4) L 09/08/19 15:46 [place] # 0.5 K/mm3 (0.0-0.8) 09/08/19 15:46 Eos # 0.1 K/mm3 (0.0-0.4) 09/08/19 15:46 Baso # 0.0 K/mm3 (0.0-0.1) 09/08/19 15:46 Seg Neutrophils % 67.9 % (40.0-70.0) 09/08/19 15:46 Seg Neutrophils # 3.9 K/mm3 (1.8-7.7) 09/08/19 15:46 Sodium 142 mmol/L (137-145) 09/17/19 05:20 Potassium 4.0 mmol/L (3.6-5.0) 09/17/19 05:20 Chloride 104.0 mmol/L (98-107) 09/17/19 05:20 Carbon Dioxide 24 mmol/L (22-30) 09/17/19 05:20 Anion Gap 18 mmol/L 09/17/19 05:20 BUN 19 mg/dL (9-20) 09/17/19 05:20 Creatinine 0.9 mg/dL (0.8-1.5) 09/17/19 05:20 Estimated GFR > 60 ml/min 09/17/19 05:20 BUN/Creatinine Ratio 21 % 09/17/19 05:20 Glucose 73 mg/dL (75-100) L 09/17/19 05:20 Calcium 8.7 mg/dL (8.4-10.2) 09/17/19 05:20 Magnesium 2.00 mg/dL (1.7-2.3) 09/17/19 05:20 Iron 43 ug/dL (49-181) L 09/11/19 15:54 TIBC 211 mcg/dL (250-450) L 09/11/19 15:54 % Saturation 20.38 % 09/11/19 15:54 Transferrin 155 mg/dl (180-329) L 09/11/19 15:54 Total Bilirubin 0.20 mg/dL (0.1-1.2) 09/08/19 15:46 AST 51 units/L (5-40) H 09/08/19 15:46 ALT 41 units/L (7-56) 09/08/19 15:46 Alkaline Phosphatase 74 units/L (35-129) 09/08/19 15:46 Total Protein 6.1 g/dL (6.3-8.2) L 09/08/19 15:46 Albumin 3.3 g/dL (3.9-5) L 09/08/19 15:46 Albumin/Globulin Ratio 1.2 % 09/08/19 15:46 Vitamin B12 1123 pg/mL (211-911) H 09/11/19 00:37 TSH 2.940 mlU/mL (0.270-4.200) 09/08/19 15:46 Acetaminophen < 5.0 ug/mL (10.0-30.0) L 09/08/19 15:46 Plasma/Serum Alcohol < 0.01 % (0-0.07) 09/08/19 15:46 Active Medications - Current Medications Current Medications: Generic Name Dose Route Start Last Admin Trade Name Freq PRN Reason Stop Dose Admin Acetaminophen 650 mg 09/08/19 22:36 Tylenol PO Q4H PRN Pain MILD(1-3)/Fever >100.5/AYALA Heparin Sodium (Porcine) 5,000 unit 09/09/19 10:00 09/16/19 23:53 Heparin SUB-Q 5,000 unit Q12HR MARILIN Administration Melatonin 5 mg 09/15/19 22:00 09/16/19 23:33 Melatonin PO 5 mg QHS MARILIN Administration Ondansetron HCl 4 mg 09/08/19 22:36 09/11/19 21:08 Zofran IV 4 mg Q8H PRN Administration Nausea And Vomiting Sodium Chloride 10 ml 09/09/19 10:00 09/16/19 23:34 Sodium Chloride Flush Syringe 10 Ml IV 10 ml BID MARILIN Administration Sodium Chloride 10 ml 09/08/19 22:36 Sodium Chloride Flush Syringe 10 Ml IV PRN PRN LINE FLUSH Nutrition/Malnutrition Assess - Dietary Evaluation Nutrition/Malnutrition Findings: Nutrition Notes Start: 09/12/19 10:25 Freq: Status: Active Protocol: Document 09/14/19 10:47 CT (Rec: 09/14/19 11:37 CT [id number]) Co-Sign 09/14/19 10:47 LM Nutrition Notes Initial or Follow up Reassessment Other Pertinent Diagnosis AMS, Hypernatremia, Anemia, Hypokalemia, Poss. Dementia, Edema Current Diet Mechanical Soft Labs/Tests Reviewed Pertinent Medications Heparin Height 5 ft 5 in Weight 74.3 kg [place] Body Weight (kg) 61.81 BMI 27.2 Subjective/Other Information firer automatic stoker in room at time of visit. Pt is disoriented and not coherent. firer automatic stoker stated that he only drank some coffee for breakfast and was unsure of dinner intake. Asked pt if he wanted an Ensure, he was unable to answer properly. Since he is not eating, Ensure was ordered . Burn Absent Trauma Absent GI Symptoms None Difficulty In Chewing Food Allergy No Current % PO Negligible Minimum of two criteria Yes Energy Intake (non-severe) <75% Estimated Energy Requirement >7 days Body Fat Depletion Mild depletion (non-severe) Muscle Mass Mild Depletion (non-severe) Fluid Accumulation Mild (non-severe) #1 Nutrition Diagnosis Malnutrition Diagnosis Progress(for reassessment Continues documentation) Is patient on ventilator? No Is Patient Ambulatory and/or Out of Bed No REE-([facility]-confined to bed) [phone] Calculation Used for Recommendations [facility] Additional Notes Protein needs: 90-112 g/day (1 .2-1.5 g/kg/day) Fluid needs: per MD Nutrition Intervention Change Diet Order: Continue current diet Add Supplement/Snack (indicate name/kcal Add Ensure Vanilla Daily /protein ) Provides kCal: 350 Provides Protein (gm) 20 Goal #1 Meet >80% of energy and protein needs Goal #2 Wt. gain/maintenance Anticipated Discharge Needs: Mechanical Soft Diet Follow-Up By: 09/18/19 Additional Comments Follow up for PO intake and ONS tolerance/need for additional ONS
--- NOTE | 2019-09-17 12:05 | Progress Note ---
Subjective - Reason for Consult Consult date: 09/17/19 Reason for consult: Psych Follow-up Requesting physician: NICOLE KAPADIA - Chief Complaint Chief complaint: "The patient mumbles" 69 y.o. AA male who presented to the ER for AMS. Today the patient remains agitated per nurse and sitter, but still confused during the assessment. Patient very disorganized today. He endorses auditory and visual hallucinations. He has received prn this am so resting with meds. Mental Status Exam - Vital signs Last Vital Signs Temp 97.9 F 09/17/19 04:12 Pulse 57 L 09/17/19 04:12 Resp 20 09/17/19 06:38 BP 141/59 09/17/19 04:12 Pulse Ox 98 09/17/19 04:12 - Exam Orientation: person Affect: agitated Mood: anxious Thought Process: Disorganized Perceptions: visual, auditory Speech: slow Motor activity: restless, agitated Level of consciousness: sedated Interaction: cooperative Assessment and Plan Impression: Unspecified Neuro Cog DO. Today the patient was still confused during the assessment. Neuro is following the patient. Pending MRI of the brain. Patient is more agitated today we will add geodon prn ...Test have been negative. Behavior leaning more towards psych at this time. With Medical clearance will refer for inpatient treatment. Patient to continue Geodon prn, will provide trazadone 50 mg Qhs DDx: Dementia, R/O Delirium Recommendation/Plan: Continue Melatonin 5 mg PO HS for sleep. Recommend Delirium precautions below: 1. Frequently reorient patient and involve him/her in their care (simple explanations of procedures, tests, medications). 2. Lights on and shades open during daytime hours. 3. Write date and goals of care in a visible place. 4. Try to avoid unnecessary interruptions to sleep during nighttime hours. 5. Obtain glasses, hearing aids from home if patient uses these at baseline. 6. Avoid medications that may exacerbate delirium (especially narcotics, benzodiazepines, barbiturates, ambien, lunesta, and medications with excessive anticholinergic property). Staffed with Dr Amilcar Rivera.
[2019-09-17] MEDS: MELATONIN 5 MG TAB PO SCH (21:14)
[2019-09-17] MEDS: HEPARIN 5,000 UNIT/1 ML VIAL SUB-Q SCH ×2 (21:22→22:41)
[2019-09-17] MEDS ORDERED: traZODone 50 MG TAB PO SCH (22:00)
[2019-09-18] MEDS: HEPARIN 5,000 UNIT/1 ML VIAL SUB-Q SCH ×2 (10:01→21:13)
--- NOTE | 2019-09-18 13:13 | Progress Note ---
Subjective - Reason for Consult Consult date: 09/18/19 Reason for consult: Psychiatry Follow-up - Chief Complaint Chief complaint: "Hello" 69 y.o. AA male who presented to the ER for AMS. Today the patient was calm, but still confused during the assessment. Overall, no significant changes to the patient's presentation. No gestures of SI/HI's. Mental Status Exam - Vital signs Last Vital Signs Temp 98.7 F 09/18/19 08:10 Pulse 62 09/18/19 03:02 Resp 19 09/18/19 08:10 BP 131/45 09/18/19 08:10 Pulse Ox 100 09/18/19 03:02 - Exam Narrative exam: MSE: Appearance: calm Behavior: regular eye contact Speech: regular rate and tone Mood: "okay" Affect: congruent to mood Thought Process: tangential Thought Content: no gestures of SI/HI's Motor Activity: lying in bed Cognition: A/O x3 Insight: confused Judgment: unable to assess Assessment and Plan Impression: Unspecified Neuro Cog DO. Today the patient was still confused during the assessment. Neuro is following the patient. DDx: Dementia, R/O Delirium Recommendation/Plan: Increase Melatonin to 10 mg PO HS for sleep. Start Namenda 5 mg PO daily for dementia symptoms. Continue 1:1 sitter for safety. Recommend Delirium precautions below: 1. Frequently reorient patient and involve him/her in their care (simple explanations of procedures, tests, medications). 2. Lights on and shades open during daytime hours. 3. Write date and goals of care in a visible place. 4. Try to avoid unnecessary interruptions to sleep during nighttime hours. 5. Obtain glasses, hearing aids from home if patient uses these at baseline. 6. Avoid medications that may exacerbate delirium (especially narcotics, benzodiazepines, barbiturates, ambien, lunesta, and medications with excessive anticholinergic property). Dispo: The patient is pending placement per Case Mgmt. Staffed with with Dr Amilcar Rivera.
[2019-09-18] MEDS: MEMANTINE 5 MG TAB PO SCH (16:43)
--- NOTE | 2019-09-18 16:47 | Progress Note ---
Assessment and Plan Assessment and plan: Presumed 69-year-old male who was brought in by EMS. He was found wandering on the street. Patient was very confused and was only able to state his name and did not know why he was brought to the hospital. Dementia with poverty of thoughts CT head, MRI brain negative. Labs which include B12 and TSH are normal. Psychiatry input appreciated. Discussed with case management, to call police to try to identify this man, as we do not have proof that this is his name date of , and his Social Securit y number was incorrect. -He was likely dehydrated upon arrival, mentation has somewhat improved with IV hydration, patient now eating and drinking Electrolytes were repleted -Continue sitter for patient safety, as he is extremely confused and also a fall. Diagnosis Dementia Acute metabolic encephalopathy Hypokalemia Chronic anemia, stable Patient is medically ready for discharge. When he is able to be identified placement needs will be obtained for the patient History Interval history: Review of systems Constitutional: No fevers, no malaise, no joint pains CVS: No chest pain, no orthopnea, no pedal edema GI: No abdominal pain, no diarrhea, no vomiting, no constipation Respiratory: , no wheezing, no coughing Hospitalist Physical - Physical exam Narrative exam: General.: Appears well, no distress, nontoxic HEENT: Moist mucous membranes, extraocular muscles intact, no lymphadenopathy, poor dentition Neck: supple Cardiac: S1-S2 heard Lungs: clear to auscultation bilaterally Abdomen: soft , nontender, nondistended, bowel sounds positive Extremities: no edema clubbing or cyanosis Skin: no rash or lesions Neurologic: Patient is confused, oriented only to self Psych: calm, and cooperative - Constitutional Vitals: Temp Pulse Resp BP Pulse Ox 98.7 F 62 19 131/45 100 09/18/19 08:10 09/18/19 03:02 09/18/19 08:10 09/18/19 08:10 09/18/19 03:02 General appearance: Present: no acute distress Results - Labs CBC & Chem 7: 09/09/19 15:05 09/17/19 05:20 Labs: Laboratory Last Values WBC 5.4 K/mm3 (4.5-11.0) 09/09/19 15:05 RBC 4.00 M/mm3 (3.65-5.03) 09/09/19 15:05 Hgb 10.1 gm/dl (11.8-15.2) L 09/09/19 15:05 Hct 31.9 % (35.5-45.6) L 09/09/19 15:05 MCV 80 fl (84-94) L 09/09/19 15:05 MCH 25 pg (28-32) L 09/09/19 15:05 MCHC 32 % (32-34) 09/09/19 15:05 RDW 16.6 % (13.2-15.2) H 09/09/19 15:05 Plt Count 633 K/mm3 (140-440) H 09/09/19 15:05 Lymph % (Auto) 19.8 % (13.4-35.0) 09/08/19 15:46 [place] % (Auto) 9.4 % (0.0-7.3) H 09/08/19 15:46 Eos % (Auto) 2.2 % (0.0-4.3) 09/08/19 15:46 Baso % (Auto) 0.7 % (0.0-1.8) 09/08/19 15:46 Lymph # 1.1 K/mm3 (1.2-5.4) L 09/08/19 15:46 [place] # 0.5 K/mm3 (0.0-0.8) 09/08/19 15:46 Eos # 0.1 K/mm3 (0.0-0.4) 09/08/19 15:46 Baso # 0.0 K/mm3 (0.0-0.1) 09/08/19 15:46 Seg Neutrophils % 67.9 % (40.0-70.0) 09/08/19 15:46 Seg Neutrophils # 3.9 K/mm3 (1.8-7.7) 09/08/19 15:46 Sodium 142 mmol/L (137-145) 09/17/19 05:20 Potassium 4.0 mmol/L (3.6-5.0) 09/17/19 05:20 Chloride 104.0 mmol/L (98-107) 09/17/19 05:20 Carbon Dioxide 24 mmol/L (22-30) 09/17/19 05:20 Anion Gap 18 mmol/L 09/17/19 05:20 BUN 19 mg/dL (9-20) 09/17/19 05:20 Creatinine 0.9 mg/dL (0.8-1.5) 09/17/19 05:20 Estimated GFR > 60 ml/min 09/17/19 05:20 BUN/Creatinine Ratio 21 % 09/17/19 05:20 Glucose 73 mg/dL (75-100) L 09/17/19 05:20 Calcium 8.7 mg/dL (8.4-10.2) 09/17/19 05:20 Magnesium 2.00 mg/dL (1.7-2.3) 09/17/19 05:20 Iron 43 ug/dL (49-181) L 09/11/19 15:54 TIBC 211 mcg/dL (250-450) L 09/11/19 15:54 % Saturation 20.38 % 09/11/19 15:54 Transferrin 155 mg/dl (180-329) L 09/11/19 15:54 Total Bilirubin 0.20 mg/dL (0.1-1.2) 09/08/19 15:46 AST 51 units/L (5-40) H 09/08/19 15:46 ALT 41 units/L (7-56) 09/08/19 15:46 Alkaline Phosphatase 74 units/L (35-129) 09/08/19 15:46 Total Protein 6.1 g/dL (6.3-8.2) L 09/08/19 15:46 Albumin 3.3 g/dL (3.9-5) L 09/08/19 15:46 Albumin/Globulin Ratio 1.2 % 09/08/19 15:46 Vitamin B12 1123 pg/mL (211-911) H 09/11/19 00:37 TSH 2.940 mlU/mL (0.270-4.200) 09/08/19 15:46 Acetaminophen < 5.0 ug/mL (10.0-30.0) L 09/08/19 15:46 Plasma/Serum Alcohol < 0.01 % (0-0.07) 09/08/19 15:46 Active Medications - Current Medications Current Medications: Generic Name Dose Route Start Last Admin Trade Name Freq PRN Reason Stop Dose Admin Acetaminophen 650 mg 09/08/19 22:36 Tylenol PO Q4H PRN Pain MILD(1-3)/Fever >100.5/AYALA Heparin Sodium (Porcine) 5,000 unit 09/09/19 10:00 09/18/19 10:01 Heparin SUB-Q 5,000 unit Q12HR MARILIN Administration Melatonin 5 mg 09/15/19 22:00 09/17/19 21:14 Melatonin PO 5 mg QHS MARILIN Administration Memantine 5 mg 09/18/19 14:00 09/18/19 16:43 Memantine PO 5 mg QDAY MARILIN Administration Ondansetron HCl 4 mg 09/08/19 22:36 09/11/19 21:08 Zofran IV 4 mg Q8H PRN Administration Nausea And Vomiting Sodium Chloride 10 ml 09/09/19 10:00 09/18/19 10:07 Sodium Chloride Flush Syringe 10 Ml IV Not Given BID MARILIN Sodium Chloride 10 ml 09/08/19 22:36 Sodium Chloride Flush Syringe 10 Ml IV PRN PRN LINE FLUSH Nutrition/Malnutrition Assess - Dietary Evaluation Nutrition/Malnutrition Findings: Nutrition Notes Start: 09/12/19 10:25 Freq: Status: Active Protocol: Document 09/18/19 12:52 LP (Rec: 09/18/19 13:12 LP [email or web address]) Nutrition Notes Initial or Follow up Reassessment Other Pertinent Diagnosis AMS, Hypernatremia, Anemia, Hypokalemia, Poss. Dementia, Edema Current Diet Mechanical Soft with Ensure daily Labs/Tests Reviewed Pertinent Medications Reviewed Height 5 ft 5 in Weight 59.3 kg [place] Body Weight (kg) 61.81 BMI 21.7 Weight change and time frame Wt change noted, but this should be the correct wt Subjective/Other Information Pt eating well. Consumed 100% of meals. Sitter states he is licking the plate and will need double portions and snacks. Percent of energy/protein needs met: 100%/100% Burn Absent GI Symptoms None Difficulty In Chewing Food Allergy No Current % PO Negligible Minimum of two criteria Yes Energy Intake (non-severe) <75% Estimated Energy Requirement >7 days Body Fat Depletion Mild depletion (non-severe) Muscle Mass Mild Depletion (non-severe) Fluid Accumulation Mild (non-severe) #1 Nutrition Diagnosis Malnutrition Diagnosis Progress(for reassessment Continues documentation) Is patient on ventilator? No Is Patient Ambulatory and/or Out of Bed No REE-([place]-confined to bed) 7108.044 Calculation Used for Recommendations [place] Additional Notes Protein needs: 90-112 g/day (1 .2-1.5 g/kg/day) Fluid needs: per MD Nutrition Intervention Change Diet Order: Continue current diet Add Supplement/Snack (indicate name/kcal Add Ensure Vanilla Daily, /protein ) double portions and snacks between meals Provides kCal: 350 Provides Protein (gm) 20 Goal #1 Meet >80% of energy and protein needs Goal #2 Wt. gain/maintenance Anticipated Discharge Needs: Mechanical Soft Diet Follow-Up By: 09/20/19 Additional Comments Follow for stable intakes
[2019-09-18] MEDS: FAMOTIDINE 20 MG TAB PO SCH (21:10)
[2019-09-18] MEDS: MELATONIN 5 MG TAB PO SCH (21:13)
--- NOTE | 2019-09-19 12:55 | Progress Note ---
Subjective - Reason for Consult Consult date: 09/19/19 Reason for consult: Psychiatry Follow-up - Chief Complaint Chief complaint: "I slept okay" 69 y.o. AA male who presented to the ER for AMS. Today the patient was calm, but still confused during the assessment. He stated that he slept well yesterday. Per the sitter, no behavioral disturbances by the patient. No gestures of SI/HI's. Mental Status Exam - Vital signs Last Vital Signs Temp 97.4 F L 09/19/19 02:05 Pulse 60 09/19/19 02:05 Resp 18 09/19/19 02:05 BP 105/55 09/19/19 02:05 Pulse Ox 93 09/19/19 02:05 - Exam Narrative exam: MSE: Appearance: calm, cooperative Behavior: regular eye contact Speech: regular rate and tone Mood: "okay" Affect: congruent to mood Thought Process: still confused Thought Content: no gestures of SI/HI's Motor Activity: lying in bed Cognition: A/O x3 Insight: limited Judgment: variable Assessment and Plan Impression: Unspecified Neuro Cog DO. Today the patient was still confused during the assessment. Neuro is following the patient. The patient maybe at his baseline. DDx: Dementia, R/O Delirium Recommendation/Plan: Continue Melatonin to 10 mg PO HS for sleep and Namenda 5 mg PO daily for dementia symptoms. Psy sign off. Recommend Delirium precautions below: 1. Frequently reorient patient and involve him/her in their care (simple explanations of procedures, tests, medications). 2. Lights on and shades open during daytime hours. 3. Write date and goals of care in a visible place. 4. Try to avoid unnecessary interruptions to sleep during nighttime hours. 5. Obtain glasses, hearing aids from home if patient uses these at baseline. 6. Avoid medications that may exacerbate delirium (especially narcotics, benzodiazepines, barbiturates, ambien, lunesta, and medications with excessive anticholinergic property). Dispo: The patient is pending placement per Case Mgmt. Will staff with Dr Amilcar Rivera.
[2019-09-19] MEDS: MEMANTINE 5 MG TAB PO SCH (13:17)
[2019-09-19] MEDS: HEPARIN 5,000 UNIT/1 ML VIAL SUB-Q SCH ×2 (13:17→22:40)
--- NOTE | 2019-09-19 15:34 | Progress Note ---
Assessment and Plan Assessment and plan: Presumed 69-year-old male who was brought in by EMS. He was found wandering on the street. Patient was very confused and was only able to state his name and did not know why he was brought to the hospital. Dementia with poverty of thoughts CT head, MRI brain negative. Labs which include B12 and TSH are normal. Psychiatry input appreciated. Discussed with case management, to call police to try to identify this man, as we do not have proof that this is his name date of , and his Social Securit y number was incorrect. -He was likely dehydrated upon arrival, mentation has somewhat improved with IV hydration, patient now eating and drinking Electrolytes were repleted -Continue sitter for patient safety, as he is extremely confused and also a fall. Diagnosis Dementia Acute metabolic encephalopathy Hypokalemia Chronic anemia, stable Patient is medically ready for discharge. When he is able to be identified placement needs will be obtained for the patient -Discussed with case management, they will call the police History Interval history: Review of systems Constitutional: No fevers, no malaise, no joint pains CVS: No chest pain, no orthopnea, no pedal edema GI: No abdominal pain, no diarrhea, no vomiting, no constipation Respiratory: , no wheezing, no coughing Hospitalist Physical - Physical exam Narrative exam: General.: Appears well, no distress, nontoxic HEENT: Moist mucous membranes, extraocular muscles intact, no lymphadenopathy, poor dentition Neck: supple Cardiac: S1-S2 heard Lungs: clear to auscultation bilaterally Abdomen: soft , nontender, nondistended, bowel sounds positive Extremities: no edema clubbing or cyanosis Skin: no rash or lesions Neurologic: Patient is confused, oriented only to self Psych: calm, and cooperative - Constitutional Vitals: Temp Pulse Resp BP Pulse Ox 97.4 F L 60 18 105/55 93 09/19/19 02:05 09/19/19 02:05 09/19/19 02:05 09/19/19 02:05 09/19/19 02:05 General appearance: Present: no acute distress Results - Labs CBC & Chem 7: 09/09/19 15:05 09/17/19 05:20 Labs: Laboratory Last Values WBC 5.4 K/mm3 (4.5-11.0) 09/09/19 15:05 RBC 4.00 M/mm3 (3.65-5.03) 09/09/19 15:05 Hgb 10.1 gm/dl (11.8-15.2) L 09/09/19 15:05 Hct 31.9 % (35.5-45.6) L 09/09/19 15:05 MCV 80 fl (84-94) L 09/09/19 15:05 MCH 25 pg (28-32) L 09/09/19 15:05 MCHC 32 % (32-34) 09/09/19 15:05 RDW 16.6 % (13.2-15.2) H 09/09/19 15:05 Plt Count 633 K/mm3 (140-440) H 09/09/19 15:05 Lymph % (Auto) 19.8 % (13.4-35.0) 09/08/19 15:46 [place] % (Auto) 9.4 % (0.0-7.3) H 09/08/19 15:46 Eos % (Auto) 2.2 % (0.0-4.3) 09/08/19 15:46 Baso % (Auto) 0.7 % (0.0-1.8) 09/08/19 15:46 Lymph # 1.1 K/mm3 (1.2-5.4) L 09/08/19 15:46 [place] # 0.5 K/mm3 (0.0-0.8) 09/08/19 15:46 Eos # 0.1 K/mm3 (0.0-0.4) 09/08/19 15:46 Baso # 0.0 K/mm3 (0.0-0.1) 09/08/19 15:46 Seg Neutrophils % 67.9 % (40.0-70.0) 09/08/19 15:46 Seg Neutrophils # 3.9 K/mm3 (1.8-7.7) 09/08/19 15:46 Sodium 142 mmol/L (137-145) 09/17/19 05:20 Potassium 4.0 mmol/L (3.6-5.0) 09/17/19 05:20 Chloride 104.0 mmol/L (98-107) 09/17/19 05:20 Carbon Dioxide 24 mmol/L (22-30) 09/17/19 05:20 Anion Gap 18 mmol/L 09/17/19 05:20 BUN 19 mg/dL (9-20) 09/17/19 05:20 Creatinine 0.9 mg/dL (0.8-1.5) 09/17/19 05:20 Estimated GFR > 60 ml/min 09/17/19 05:20 BUN/Creatinine Ratio 21 % 09/17/19 05:20 Glucose 73 mg/dL (75-100) L 09/17/19 05:20 Calcium 8.7 mg/dL (8.4-10.2) 09/17/19 05:20 Magnesium 2.00 mg/dL (1.7-2.3) 09/17/19 05:20 Iron 43 ug/dL (49-181) L 09/11/19 15:54 TIBC 211 mcg/dL (250-450) L 09/11/19 15:54 % Saturation 20.38 % 09/11/19 15:54 Transferrin 155 mg/dl (180-329) L 09/11/19 15:54 Total Bilirubin 0.20 mg/dL (0.1-1.2) 09/08/19 15:46 AST 51 units/L (5-40) H 09/08/19 15:46 ALT 41 units/L (7-56) 09/08/19 15:46 Alkaline Phosphatase 74 units/L (35-129) 09/08/19 15:46 Total Protein 6.1 g/dL (6.3-8.2) L 09/08/19 15:46 Albumin 3.3 g/dL (3.9-5) L 09/08/19 15:46 Albumin/Globulin Ratio 1.2 % 09/08/19 15:46 Vitamin B12 1123 pg/mL (211-911) H 09/11/19 00:37 TSH 2.940 mlU/mL (0.270-4.200) 09/08/19 15:46 Acetaminophen < 5.0 ug/mL (10.0-30.0) L 09/08/19 15:46 Plasma/Serum Alcohol < 0.01 % (0-0.07) 09/08/19 15:46 Active Medications - Current Medications Current Medications: Generic Name Dose Route Start Last Admin Trade Name Freq PRN Reason Stop Dose Admin Acetaminophen 650 mg 09/08/19 22:36 Tylenol PO Q4H PRN Pain MILD(1-3)/Fever >100.5/AYALA Heparin Sodium (Porcine) 5,000 unit 09/09/19 10:00 09/19/19 13:17 Heparin SUB-Q 5,000 unit Q12HR MARILIN Administration Melatonin 5 mg 09/15/19 22:00 09/18/19 21:13 Melatonin PO 5 mg QHS MARILIN Administration Memantine 5 mg 09/18/19 14:00 09/19/19 13:17 Memantine PO 5 mg QDAY MARILIN Administration Ondansetron HCl 4 mg 09/08/19 22:36 09/11/19 21:08 Zofran IV 4 mg Q8H PRN Administration Nausea And Vomiting Sodium Chloride 10 ml 09/09/19 10:00 09/19/19 13:17 Sodium Chloride Flush Syringe 10 Ml IV 10 ml BID MARILIN Administration Sodium Chloride 10 ml 09/08/19 22:36 Sodium Chloride Flush Syringe 10 Ml IV PRN PRN LINE FLUSH Nutrition/Malnutrition Assess - Dietary Evaluation Nutrition/Malnutrition Findings: Nutrition Notes Start: 09/12/19 10:25 Freq: Status: Active Protocol: Document 09/18/19 12:52 LP (Rec: 09/18/19 13:12 LP [email or web address]) Nutrition Notes Initial or Follow up Reassessment Other Pertinent Diagnosis AMS, Hypernatremia, Anemia, Hypokalemia, Poss. Dementia, Edema Current Diet Mechanical Soft with Ensure daily Labs/Tests Reviewed Pertinent Medications Reviewed Height 5 ft 5 in Weight 59.3 kg [place] Body Weight (kg) 61.81 BMI 21.7 Weight change and time frame Wt change noted, but this should be the correct wt Subjective/Other Information Pt eating well. Consumed 100% of meals. Sitter states he is licking the plate and will need double portions and snacks. Percent of energy/protein needs met: 100%/100% Burn Absent GI Symptoms None Difficulty In Chewing Food Allergy No Current % PO Negligible Minimum of two criteria Yes Energy Intake (non-severe) <75% Estimated Energy Requirement >7 days Body Fat Depletion Mild depletion (non-severe) Muscle Mass Mild Depletion (non-severe) Fluid Accumulation Mild (non-severe) #1 Nutrition Diagnosis Malnutrition Diagnosis Progress(for reassessment Continues documentation) Is patient on ventilator? No Is Patient Ambulatory and/or Out of Bed No REE-([place] [facility]-confined to bed) [phone] Calculation Used for Recommendations [place] [place] Additional Notes Protein needs: 90-112 g/day (1 .2-1.5 g/kg/day) Fluid needs: per MD Nutrition Intervention Change Diet Order: Continue current diet Add Supplement/Snack (indicate name/kcal Add Ensure Vanilla Daily, /protein ) double portions and snacks between meals Provides kCal: 350 Provides Protein (gm) 20 Goal #1 Meet >80% of energy and protein needs Goal #2 Wt. gain/maintenance Anticipated Discharge Needs: Mechanical Soft Diet Follow-Up By: 09/20/19 Additional Comments Follow for stable intakes
[2019-09-19] MEDS: MELATONIN 5 MG TAB PO SCH (22:39)
[2019-09-20] MEDS: HEPARIN 5,000 UNIT/1 ML VIAL SUB-Q SCH ×2 (11:06→21:54)
[2019-09-20] MEDS: MEMANTINE 5 MG TAB PO SCH (11:06)
--- NOTE | 2019-09-20 12:12 | Progress Note ---
Assessment and Plan Assessment and plan: Presumed 69-year-old male who was brought in by EMS. He was found wandering on the street. Patient was very confused and was only able to state his name and did not know why he was brought to the hospital. Dementia with poverty of thoughts CT head, MRI brain negative. Labs which include B12 and TSH are normal. Psychiatry input appreciated. Discussed with case management, to call police to try to identify this man, as we do not have proof that this is his name date of , and his Social Securit y number was incorrect. -He was likely dehydrated upon arrival, mentation has somewhat improved with IV hydration, patient now eating and drinking Electrolytes were repleted -Continue sitter for patient safety, as he is extremely confused and also a fall. Diagnosis Dementia Acute metabolic encephalopathy Hypokalemia Chronic anemia, stable Patient is medically ready for discharge. When he is able to be identified placement needs will be obtained for the patient -Discussed with case management, police has seen the patient, they have fingerprinted him, still unable to identify him, awaiting fingerprints report which she will come back probably next week. History Interval history: Review of systems Constitutional: No fevers, no malaise, no joint pains CVS: No chest pain, no orthopnea, no pedal edema GI: No abdominal pain, no diarrhea, no vomiting, no constipation Respiratory: , no wheezing, no coughing Hospitalist Physical - Physical exam Narrative exam: General.: Appears well, no distress, nontoxic HEENT: Moist mucous membranes, extraocular muscles intact, no lymphadenopathy, poor dentition Neck: supple Cardiac: S1-S2 heard Lungs: clear to auscultation bilaterally Abdomen: soft , nontender, nondistended, bowel sounds positive Extremities: no edema clubbing or cyanosis Skin: no rash or lesions Neurologic: Patient is confused, oriented only to self Psych: calm, and cooperative - Constitutional Vitals: Temp Pulse Resp BP Pulse Ox 97.4 F L 71 18 104/60 96 09/20/19 07:33 09/20/19 07:33 09/20/19 07:33 09/20/19 07:33 09/20/19 10:00 General appearance: Present: no acute distress Results - Labs CBC & Chem 7: 09/09/19 15:05 09/17/19 05:20 Labs: Laboratory Last Values WBC 5.4 K/mm3 (4.5-11.0) 09/09/19 15:05 RBC 4.00 M/mm3 (3.65-5.03) 09/09/19 15:05 Hgb 10.1 gm/dl (11.8-15.2) L 09/09/19 15:05 Hct 31.9 % (35.5-45.6) L 09/09/19 15:05 MCV 80 fl (84-94) L 09/09/19 15:05 MCH 25 pg (28-32) L 09/09/19 15:05 MCHC 32 % (32-34) 09/09/19 15:05 RDW 16.6 % (13.2-15.2) H 09/09/19 15:05 Plt Count 633 K/mm3 (140-440) H 09/09/19 15:05 Lymph % (Auto) 19.8 % (13.4-35.0) 09/08/19 15:46 [place] % (Auto) 9.4 % (0.0-7.3) H 09/08/19 15:46 Eos % (Auto) 2.2 % (0.0-4.3) 09/08/19 15:46 Baso % (Auto) 0.7 % (0.0-1.8) 09/08/19 15:46 Lymph # 1.1 K/mm3 (1.2-5.4) L 09/08/19 15:46 [place] # 0.5 K/mm3 (0.0-0.8) 09/08/19 15:46 Eos # 0.1 K/mm3 (0.0-0.4) 09/08/19 15:46 Baso # 0.0 K/mm3 (0.0-0.1) 09/08/19 15:46 Seg Neutrophils % 67.9 % (40.0-70.0) 09/08/19 15:46 Seg Neutrophils # 3.9 K/mm3 (1.8-7.7) 09/08/19 15:46 Sodium 142 mmol/L (137-145) 09/17/19 05:20 Potassium 4.0 mmol/L (3.6-5.0) 09/17/19 05:20 Chloride 104.0 mmol/L (98-107) 09/17/19 05:20 Carbon Dioxide 24 mmol/L (22-30) 09/17/19 05:20 Anion Gap 18 mmol/L 09/17/19 05:20 BUN 19 mg/dL (9-20) 09/17/19 05:20 Creatinine 0.9 mg/dL (0.8-1.5) 09/17/19 05:20 Estimated GFR > 60 ml/min 09/17/19 05:20 BUN/Creatinine Ratio 21 % 09/17/19 05:20 Glucose 73 mg/dL (75-100) L 09/17/19 05:20 Calcium 8.7 mg/dL (8.4-10.2) 09/17/19 05:20 Magnesium 2.00 mg/dL (1.7-2.3) 09/17/19 05:20 Iron 43 ug/dL (49-181) L 09/11/19 15:54 TIBC 211 mcg/dL (250-450) L 09/11/19 15:54 % Saturation 20.38 % 09/11/19 15:54 Transferrin 155 mg/dl (180-329) L 09/11/19 15:54 Total Bilirubin 0.20 mg/dL (0.1-1.2) 09/08/19 15:46 AST 51 units/L (5-40) H 09/08/19 15:46 ALT 41 units/L (7-56) 09/08/19 15:46 Alkaline Phosphatase 74 units/L (35-129) 09/08/19 15:46 Total Protein 6.1 g/dL (6.3-8.2) L 09/08/19 15:46 Albumin 3.3 g/dL (3.9-5) L 09/08/19 15:46 Albumin/Globulin Ratio 1.2 % 09/08/19 15:46 Vitamin B12 1123 pg/mL (211-911) H 09/11/19 00:37 TSH 2.940 mlU/mL (0.270-4.200) 09/08/19 15:46 Acetaminophen < 5.0 ug/mL (10.0-30.0) L 09/08/19 15:46 Plasma/Serum Alcohol < 0.01 % (0-0.07) 09/08/19 15:46 Active Medications - Current Medications Current Medications: Generic Name Dose Route Start Last Admin Trade Name Freq PRN Reason Stop Dose Admin Acetaminophen 650 mg 09/08/19 22:36 Tylenol PO Q4H PRN Pain MILD(1-3)/Fever >100.5/AYALA Heparin Sodium (Porcine) 5,000 unit 09/09/19 10:00 09/20/19 11:06 Heparin SUB-Q 5,000 unit Q12HR MARILIN Administration Melatonin 5 mg 09/15/19 22:00 09/19/19 22:39 Melatonin PO 5 mg QHS MARILIN Administration Memantine 5 mg 09/18/19 14:00 09/20/19 11:06 Memantine PO 5 mg QDAY MARILIN Administration Ondansetron HCl 4 mg 09/08/19 22:36 09/11/19 21:08 Zofran IV 4 mg Q8H PRN Administration Nausea And Vomiting Sodium Chloride 10 ml 09/09/19 10:00 09/20/19 11:11 Sodium Chloride Flush Syringe 10 Ml IV Not Given BID MARILIN Sodium Chloride 10 ml 09/08/19 22:36 Sodium Chloride Flush Syringe 10 Ml IV PRN PRN LINE FLUSH Nutrition/Malnutrition Assess - Dietary Evaluation Nutrition/Malnutrition Findings: Nutrition Notes Start: 09/12/19 10:25 Freq: Status: Active Protocol: Document 09/20/19 11:59 LM (Rec: 09/20/19 12:04 LM [email or web address]) Nutrition Notes Initial or Follow up Reassessment Other Pertinent Diagnosis AMS, Hypernatremia, Anemia, Hypokalemia, Poss. Dementia, Edema Current Diet Mechanical Soft with Ensure daily Labs/Tests Reviewed Pertinent Medications Reviewed Height 5 ft 5 in Weight 59.2 kg [place] Body Weight (kg) 61.81 BMI 21.7 Subjective/Other Information RN stated pt ate all of his breakfast this AM. Pt stated he did not get Ensure today but drank one yesterday. Percent of energy/protein needs met: 100%/100% Burn Absent Trauma Absent GI Symptoms None Difficulty In Chewing Food Allergy No Current % PO Good (75-100%) Minimum of two criteria Yes Energy Intake (non-severe) <75% Estimated Energy Requirement >7 days Body Fat Depletion Mild depletion (non-severe) Muscle Mass Mild Depletion (non-severe) Fluid Accumulation Mild (non-severe) #1 Nutrition Diagnosis Malnutrition Diagnosis Progress(for reassessment Continues documentation) Is patient on ventilator? No Is Patient Ambulatory and/or Out of Bed No REE-([facility]-confined to bed) 9426.742 Calculation Used for Recommendations [facility] Additional Notes Protein needs: 71-89 g/day (1. 2-1.5 g/kg/day) Fluid needs: per MD Nutrition Intervention Change Diet Order: Continue current diet Add Supplement/Snack (indicate name/kcal Ensure Vanilla Daily, double /protein ) portions and snacks between meals Provides kCal: 350 Provides Protein (gm) 20 Goal #1 Meet >80% of energy and protein needs Goal #2 Wt. gain/maintenance Anticipated Discharge Needs: Mechanical Soft Diet Follow-Up By: 09/27/19 Additional Comments F/U for PO/ONS intakes
[2019-09-20] MEDS: MELATONIN 5 MG TAB PO SCH (21:53)
--- NOTE | 2019-09-21 09:31 | Progress Note ---
Assessment and Plan Assessment and plan: Presumed 69-year-old male who was brought in by EMS. He was found wandering on the street. Patient was very confused and was only able to state his name and did not know why he was brought to the hospital. Dementia with poverty of thoughts CT head, MRI brain negative. Labs which include B12 and TSH are normal. Psychiatry input appreciated. Discussed with case management, to call police to try to identify this man, as we do not have proof that this is his name date of , and his Social Securit y number was incorrect. -He was likely dehydrated upon arrival, mentation has somewhat improved with IV hydration, patient now eating and drinking Electrolytes were repleted -Continue sitter for patient safety, as he is extremely confused and also a fall risk Diagnosis Dementia Acute metabolic encephalopathy Hypokalemia Chronic anemia, stable Patient is medically ready for discharge. When he is able to be identified placement needs will be obtained for the patient -Discussed with case management, police has seen the patient, they have fingerprinted him, still unable to identify him, awaiting fingerprints report which she will come back probably next week. History Interval history: Review of systems Constitutional: No fevers, no malaise, no joint pains CVS: No chest pain, no orthopnea, no pedal edema GI: No abdominal pain, no diarrhea, no vomiting, no constipation Respiratory: , no wheezing, no coughing Hospitalist Physical - Physical exam Narrative exam: General.: Appears well, no distress, nontoxic HEENT: Moist mucous membranes, extraocular muscles intact, no lymphadenopathy, poor dentition Neck: supple Cardiac: S1-S2 heard Lungs: clear to auscultation bilaterally Abdomen: soft , nontender, nondistended, bowel sounds positive Extremities: no edema clubbing or cyanosis Skin: no rash or lesions Neurologic: Patient is confused, oriented only to self Psych: calm, and cooperative - Constitutional Vitals: Temp Pulse Resp BP Pulse Ox 97.9 F 54 L 18 145/65 97 09/21/19 02:45 09/21/19 02:45 09/21/19 02:45 09/21/19 02:45 09/21/19 02:45 General appearance: Present: no acute distress Results - Labs CBC & Chem 7: 09/09/19 15:05 09/17/19 05:20 Labs: Laboratory Last Values WBC 5.4 K/mm3 (4.5-11.0) 09/09/19 15:05 RBC 4.00 M/mm3 (3.65-5.03) 09/09/19 15:05 Hgb 10.1 gm/dl (11.8-15.2) L 09/09/19 15:05 Hct 31.9 % (35.5-45.6) L 09/09/19 15:05 MCV 80 fl (84-94) L 09/09/19 15:05 MCH 25 pg (28-32) L 09/09/19 15:05 MCHC 32 % (32-34) 09/09/19 15:05 RDW 16.6 % (13.2-15.2) H 09/09/19 15:05 Plt Count 633 K/mm3 (140-440) H 09/09/19 15:05 Lymph % (Auto) 19.8 % (13.4-35.0) 09/08/19 15:46 [place] % (Auto) 9.4 % (0.0-7.3) H 09/08/19 15:46 Eos % (Auto) 2.2 % (0.0-4.3) 09/08/19 15:46 Baso % (Auto) 0.7 % (0.0-1.8) 09/08/19 15:46 Lymph # 1.1 K/mm3 (1.2-5.4) L 09/08/19 15:46 [place] # 0.5 K/mm3 (0.0-0.8) 09/08/19 15:46 Eos # 0.1 K/mm3 (0.0-0.4) 09/08/19 15:46 Baso # 0.0 K/mm3 (0.0-0.1) 09/08/19 15:46 Seg Neutrophils % 67.9 % (40.0-70.0) 09/08/19 15:46 Seg Neutrophils # 3.9 K/mm3 (1.8-7.7) 09/08/19 15:46 Sodium 142 mmol/L (137-145) 09/17/19 05:20 Potassium 4.0 mmol/L (3.6-5.0) 09/17/19 05:20 Chloride 104.0 mmol/L (98-107) 09/17/19 05:20 Carbon Dioxide 24 mmol/L (22-30) 09/17/19 05:20 Anion Gap 18 mmol/L 09/17/19 05:20 BUN 19 mg/dL (9-20) 09/17/19 05:20 Creatinine 0.9 mg/dL (0.8-1.5) 09/17/19 05:20 Estimated GFR > 60 ml/min 09/17/19 05:20 BUN/Creatinine Ratio 21 % 09/17/19 05:20 Glucose 73 mg/dL (75-100) L 09/17/19 05:20 Calcium 8.7 mg/dL (8.4-10.2) 09/17/19 05:20 Magnesium 2.00 mg/dL (1.7-2.3) 09/17/19 05:20 Iron 43 ug/dL (49-181) L 09/11/19 15:54 TIBC 211 mcg/dL (250-450) L 09/11/19 15:54 % Saturation 20.38 % 09/11/19 15:54 Transferrin 155 mg/dl (180-329) L 09/11/19 15:54 Total Bilirubin 0.20 mg/dL (0.1-1.2) 09/08/19 15:46 AST 51 units/L (5-40) H 09/08/19 15:46 ALT 41 units/L (7-56) 09/08/19 15:46 Alkaline Phosphatase 74 units/L (35-129) 09/08/19 15:46 Total Protein 6.1 g/dL (6.3-8.2) L 09/08/19 15:46 Albumin 3.3 g/dL (3.9-5) L 09/08/19 15:46 Albumin/Globulin Ratio 1.2 % 09/08/19 15:46 Vitamin B12 1123 pg/mL (211-911) H 09/11/19 00:37 TSH 2.940 mlU/mL (0.270-4.200) 09/08/19 15:46 Acetaminophen < 5.0 ug/mL (10.0-30.0) L 09/08/19 15:46 Plasma/Serum Alcohol < 0.01 % (0-0.07) 09/08/19 15:46 Active Medications - Current Medications Current Medications: Generic Name Dose Route Start Last Admin Trade Name Freq PRN Reason Stop Dose Admin Acetaminophen 650 mg 09/08/19 22:36 Tylenol PO Q4H PRN Pain MILD(1-3)/Fever >100.5/AYALA Heparin Sodium (Porcine) 5,000 unit 09/09/19 10:00 09/20/19 21:54 Heparin SUB-Q 5,000 unit Q12HR MARILIN Administration Melatonin 5 mg 09/15/19 22:00 09/20/19 21:53 Melatonin PO 5 mg QHS MARILIN Administration Memantine 5 mg 09/18/19 14:00 09/20/19 11:06 Memantine PO 5 mg QDAY MARILIN Administration Ondansetron HCl 4 mg 09/08/19 22:36 09/11/19 21:08 Zofran IV 4 mg Q8H PRN Administration Nausea And Vomiting Sodium Chloride 10 ml 09/09/19 10:00 09/20/19 23:03 Sodium Chloride Flush Syringe 10 Ml IV Not Given BID MARILIN Sodium Chloride 10 ml 09/08/19 22:36 Sodium Chloride Flush Syringe 10 Ml IV PRN PRN LINE FLUSH Nutrition/Malnutrition Assess - Dietary Evaluation Nutrition/Malnutrition Findings: Nutrition Notes Start: 09/12/19 10:25 Freq: Status: Active Protocol: Document 09/20/19 11:59 LM (Rec: 09/20/19 12:04 LM [email or web address]) Nutrition Notes Initial or Follow up Reassessment Other Pertinent Diagnosis AMS, Hypernatremia, Anemia, Hypokalemia, Poss. Dementia, Edema Current Diet Mechanical Soft with Ensure daily Labs/Tests Reviewed Pertinent Medications Reviewed Height 5 ft 5 in Weight 59.2 kg [place] Body Weight (kg) 61.81 BMI 21.7 Subjective/Other Information RN stated pt ate all of his breakfast this AM. Pt stated he did not get Ensure today but drank one yesterday. Percent of energy/protein needs met: 100%/100% Burn Absent Trauma Absent GI Symptoms None Difficulty In Chewing Food Allergy No Current % PO Good (75-100%) Minimum of two criteria Yes Energy Intake (non-severe) <75% Estimated Energy Requirement >7 days Body Fat Depletion Mild depletion (non-severe) Muscle Mass Mild Depletion (non-severe) Fluid Accumulation Mild (non-severe) #1 Nutrition Diagnosis Malnutrition Diagnosis Progress(for reassessment Continues documentation) Is patient on ventilator? No Is Patient Ambulatory and/or Out of Bed No REE-([facility]-confined to bed) [phone] Calculation Used for Recommendations [facility] Additional Notes Protein needs: 71-89 g/day (1. 2-1.5 g/kg/day) Fluid needs: per MD Nutrition Intervention Change Diet Order: Continue current diet Add Supplement/Snack (indicate name/kcal Ensure Vanilla Daily, double /protein ) portions and snacks between meals Provides kCal: 350 Provides Protein (gm) 20 Goal #1 Meet >80% of energy and protein needs Goal #2 Wt. gain/maintenance Anticipated Discharge Needs: Mechanical Soft Diet Follow-Up By: 09/27/19 Additional Comments F/U for PO/ONS intakes
[2019-09-21] MEDS: HEPARIN 5,000 UNIT/1 ML VIAL SUB-Q SCH ×2 (10:06→22:39)
[2019-09-21] MEDS: MEMANTINE 5 MG TAB PO SCH (10:06)
[2019-09-21] MEDS: MELATONIN 5 MG TAB PO SCH (22:38)
[2019-09-22] MEDS: MEMANTINE 5 MG TAB PO SCH (11:08)
[2019-09-22] MEDS: HEPARIN 5,000 UNIT/1 ML VIAL SUB-Q SCH ×2 (11:08→21:56)
--- NOTE | 2019-09-22 13:07 | Progress Note ---
Assessment and Plan Assessment and plan: Presumed 69-year-old male who was brought in by EMS. He was found wandering on the street. Patient was very confused and was only able to state his name and did not know why he was brought to the hospital. Dementia with poverty of thoughts CT head, MRI brain negative. Labs which include B12 and TSH are normal. Psychiatry input appreciated. Discussed with case management, to call police to try to identify this man, as we do not have proof that this is his name date of , and his Social Securit y number was incorrect. -He was likely dehydrated upon arrival, mentation has somewhat improved with IV hydration, patient now eating and drinking Electrolytes were repleted -Continue sitter for patient safety, as he is extremely confused and also a fall risk Diagnosis Dementia Acute metabolic encephalopathy Hypokalemia Chronic anemia, stable Patient is medically ready for discharge. When he is able to be identified placement needs will be obtained for the patient -Discussed with case management, police has seen the patient, they have fingerprinted him, still unable to identify him, awaiting fingerprints report which she will come back probably next week. I have advised nursing staff not to restrain the patient. History Interval history: Review of systems Constitutional: No fevers, no malaise, no joint pains CVS: No chest pain, no orthopnea, no pedal edema GI: No abdominal pain, no diarrhea, no vomiting, no constipation Respiratory: , no wheezing, no coughing Hospitalist Physical - Physical exam Narrative exam: General.: Appears well, no distress, nontoxic HEENT: Moist mucous membranes, extraocular muscles intact, no lymphadenopathy, poor dentition Neck: supple Cardiac: S1-S2 heard Lungs: clear to auscultation bilaterally Abdomen: soft , nontender, nondistended, bowel sounds positive Extremities: no edema clubbing or cyanosis Skin: no rash or lesions Neurologic: Patient is confused, oriented only to self Psych: calm, and cooperative - Constitutional Vitals: Temp Pulse Resp BP Pulse Ox 97.6 F 94 H 17 112/67 96 09/22/19 04:03 09/22/19 04:03 09/22/19 04:03 09/22/19 04:03 09/22/19 04:03 General appearance: Present: no acute distress Results - Labs CBC & Chem 7: 09/09/19 15:05 09/17/19 05:20 Labs: Laboratory Last Values WBC 5.4 K/mm3 (4.5-11.0) 09/09/19 15:05 RBC 4.00 M/mm3 (3.65-5.03) 09/09/19 15:05 Hgb 10.1 gm/dl (11.8-15.2) L 09/09/19 15:05 Hct 31.9 % (35.5-45.6) L 09/09/19 15:05 MCV 80 fl (84-94) L 09/09/19 15:05 MCH 25 pg (28-32) L 09/09/19 15:05 MCHC 32 % (32-34) 09/09/19 15:05 RDW 16.6 % (13.2-15.2) H 09/09/19 15:05 Plt Count 633 K/mm3 (140-440) H 09/09/19 15:05 Lymph % (Auto) 19.8 % (13.4-35.0) 09/08/19 15:46 [place] % (Auto) 9.4 % (0.0-7.3) H 09/08/19 15:46 Eos % (Auto) 2.2 % (0.0-4.3) 09/08/19 15:46 Baso % (Auto) 0.7 % (0.0-1.8) 09/08/19 15:46 Lymph # 1.1 K/mm3 (1.2-5.4) L 09/08/19 15:46 [place] # 0.5 K/mm3 (0.0-0.8) 09/08/19 15:46 Eos # 0.1 K/mm3 (0.0-0.4) 09/08/19 15:46 Baso # 0.0 K/mm3 (0.0-0.1) 09/08/19 15:46 Seg Neutrophils % 67.9 % (40.0-70.0) 09/08/19 15:46 Seg Neutrophils # 3.9 K/mm3 (1.8-7.7) 09/08/19 15:46 Sodium 142 mmol/L (137-145) 09/17/19 05:20 Potassium 4.0 mmol/L (3.6-5.0) 09/17/19 05:20 Chloride 104.0 mmol/L (98-107) 09/17/19 05:20 Carbon Dioxide 24 mmol/L (22-30) 09/17/19 05:20 Anion Gap 18 mmol/L 09/17/19 05:20 BUN 19 mg/dL (9-20) 09/17/19 05:20 Creatinine 0.9 mg/dL (0.8-1.5) 09/17/19 05:20 Estimated GFR > 60 ml/min 09/17/19 05:20 BUN/Creatinine Ratio 21 % 09/17/19 05:20 Glucose 73 mg/dL (75-100) L 09/17/19 05:20 Calcium 8.7 mg/dL (8.4-10.2) 09/17/19 05:20 Magnesium 2.00 mg/dL (1.7-2.3) 09/17/19 05:20 Iron 43 ug/dL (49-181) L 09/11/19 15:54 TIBC 211 mcg/dL (250-450) L 09/11/19 15:54 % Saturation 20.38 % 09/11/19 15:54 Transferrin 155 mg/dl (180-329) L 09/11/19 15:54 Total Bilirubin 0.20 mg/dL (0.1-1.2) 09/08/19 15:46 AST 51 units/L (5-40) H 09/08/19 15:46 ALT 41 units/L (7-56) 09/08/19 15:46 Alkaline Phosphatase 74 units/L (35-129) 09/08/19 15:46 Total Protein 6.1 g/dL (6.3-8.2) L 09/08/19 15:46 Albumin 3.3 g/dL (3.9-5) L 09/08/19 15:46 Albumin/Globulin Ratio 1.2 % 09/08/19 15:46 Vitamin B12 1123 pg/mL (211-911) H 09/11/19 00:37 TSH 2.940 mlU/mL (0.270-4.200) 09/08/19 15:46 Acetaminophen < 5.0 ug/mL (10.0-30.0) L 09/08/19 15:46 Plasma/Serum Alcohol < 0.01 % (0-0.07) 09/08/19 15:46 Active Medications - Current Medications Current Medications: Generic Name Dose Route Start Last Admin Trade Name Freq PRN Reason Stop Dose Admin Acetaminophen 650 mg 09/08/19 22:36 Tylenol PO Q4H PRN Pain MILD(1-3)/Fever >100.5/AYALA Heparin Sodium (Porcine) 5,000 unit 09/09/19 10:00 09/22/19 11:08 Heparin SUB-Q 5,000 unit Q12HR MARILIN Administration Melatonin 5 mg 09/15/19 22:00 09/21/19 22:38 Melatonin PO 5 mg QHS MARILIN Administration Memantine 5 mg 09/18/19 14:00 09/22/19 11:08 Memantine PO 5 mg QDAY MARILIN Administration Ondansetron HCl 4 mg 09/08/19 22:36 09/11/19 21:08 Zofran IV 4 mg Q8H PRN Administration Nausea And Vomiting Sodium Chloride 10 ml 09/09/19 10:00 09/22/19 11:18 Sodium Chloride Flush Syringe 10 Ml IV Not Given BID MARILIN Sodium Chloride 10 ml 09/08/19 22:36 Sodium Chloride Flush Syringe 10 Ml IV PRN PRN LINE FLUSH Nutrition/Malnutrition Assess - Dietary Evaluation Nutrition/Malnutrition Findings: Nutrition Notes Start: 09/12/19 10:25 Freq: Status: Active Protocol: Document 09/20/19 11:59 LM (Rec: 09/20/19 12:04 LM [email or web address]) Nutrition Notes Initial or Follow up Reassessment Other Pertinent Diagnosis AMS, Hypernatremia, Anemia, Hypokalemia, Poss. Dementia, Edema Current Diet Mechanical Soft with Ensure daily Labs/Tests Reviewed Pertinent Medications Reviewed Height 5 ft 5 in Weight 59.2 kg [place] Body Weight (kg) 61.81 BMI 21.7 Subjective/Other Information RN stated pt ate all of his breakfast this AM. Pt stated he did not get Ensure today but drank one yesterday. Percent of energy/protein needs met: 100%/100% Burn Absent Trauma Absent GI Symptoms None Difficulty In Chewing Food Allergy No Current % PO Good (75-100%) Minimum of two criteria Yes Energy Intake (non-severe) <75% Estimated Energy Requirement >7 days Body Fat Depletion Mild depletion (non-severe) Muscle Mass Mild Depletion (non-severe) Fluid Accumulation Mild (non-severe) #1 Nutrition Diagnosis Malnutrition Diagnosis Progress(for reassessment Continues documentation) Is patient on ventilator? No Is Patient Ambulatory and/or Out of Bed No REE-([facility]-confined to bed) 5430.430 Calculation Used for Recommendations [facility] Additional Notes Protein needs: 71-89 g/day (1. 2-1.5 g/kg/day) Fluid needs: per MD Nutrition Intervention Change Diet Order: Continue current diet Add Supplement/Snack (indicate name/kcal Ensure Vanilla Daily, double /protein ) portions and snacks between meals Provides kCal: 350 Provides Protein (gm) 20 Goal #1 Meet >80% of energy and protein needs Goal #2 Wt. gain/maintenance Anticipated Discharge Needs: Mechanical Soft Diet Follow-Up By: 09/27/19 Additional Comments F/U for PO/ONS intakes
[2019-09-22] MEDS: MELATONIN 5 MG TAB PO SCH (21:46)
[2019-09-23] MEDS: MEMANTINE 5 MG TAB PO SCH (09:58)
[2019-09-23] MEDS: HEPARIN 5,000 UNIT/1 ML VIAL SUB-Q SCH ×2 (09:58→21:32)
--- NOTE | 2019-09-23 12:21 | Progress Note ---
Assessment and Plan Assessment and plan: Presumed 69-year-old male who was brought in by EMS. He was found wandering on the street. Patient was very confused and was only able to state his name and did not know why he was brought to the hospital. Dementia with poverty of thoughts CT head, MRI brain negative. Labs which include B12 and TSH are normal. Psychiatry input appreciated. Discussed with case management, to call police to try to identify this man, as we do not have proof that this is his name date of , and his Social Securit y number was incorrect. -He was likely dehydrated upon arrival, mentation has somewhat improved with IV hydration, patient now eating and drinking Electrolytes were repleted -Continue sitter for patient safety, as he is extremely confused and also a fall risk Diagnosis Dementia Acute metabolic encephalopathy Hypokalemia Chronic anemia, stable Patient is medically ready for discharge. When he is able to be identified placement needs will be obtained for the patient -Advised nursing staff to keep the patient off restraints -Discussed with case management, please have been identified the patient to have given us his name and date of . And his Social Security number. Unable to reach any family, patient will likely need personal senior living upon discharge I have advised nursing staff not to restrain the patient. History Interval history: Review of systems Constitutional: No fevers, no malaise, no joint pains CVS: No chest pain, no orthopnea, no pedal edema GI: No abdominal pain, no diarrhea, no vomiting, no constipation Respiratory: , no wheezing, no coughing Hospitalist Physical - Physical exam Narrative exam: General.: Appears well, no distress, nontoxic HEENT: Moist mucous membranes, extraocular muscles intact, no lymphadenopathy, poor dentition Neck: supple Cardiac: S1-S2 heard Lungs: clear to auscultation bilaterally Abdomen: soft , nontender, nondistended, bowel sounds positive Extremities: no edema clubbing or cyanosis Skin: no rash or lesions Neurologic: Patient is confused, oriented only to self Psych: calm, and cooperative - Constitutional Vitals: Temp Pulse Resp BP Pulse Ox 98.2 F 59 L 18 117/60 98 09/23/19 07:49 09/23/19 07:49 09/23/19 07:49 09/23/19 07:49 09/23/19 07:49 General appearance: Present: no acute distress Results - Labs CBC & Chem 7: 09/24/19 04:25 09/24/19 04:25 Labs: Laboratory Last Values WBC 5.4 K/mm3 (4.5-11.0) 09/09/19 15:05 RBC 4.00 M/mm3 (3.65-5.03) 09/09/19 15:05 Hgb 10.1 gm/dl (11.8-15.2) L 09/09/19 15:05 Hct 31.9 % (35.5-45.6) L 09/09/19 15:05 MCV 80 fl (84-94) L 09/09/19 15:05 MCH 25 pg (28-32) L 09/09/19 15:05 MCHC 32 % (32-34) 09/09/19 15:05 RDW 16.6 % (13.2-15.2) H 09/09/19 15:05 Plt Count 633 K/mm3 (140-440) H 09/09/19 15:05 Lymph % (Auto) 19.8 % (13.4-35.0) 09/08/19 15:46 [place] % (Auto) 9.4 % (0.0-7.3) H 09/08/19 15:46 Eos % (Auto) 2.2 % (0.0-4.3) 09/08/19 15:46 Baso % (Auto) 0.7 % (0.0-1.8) 09/08/19 15:46 Lymph # 1.1 K/mm3 (1.2-5.4) L 09/08/19 15:46 [place] # 0.5 K/mm3 (0.0-0.8) 09/08/19 15:46 Eos # 0.1 K/mm3 (0.0-0.4) 09/08/19 15:46 Baso # 0.0 K/mm3 (0.0-0.1) 09/08/19 15:46 Seg Neutrophils % 67.9 % (40.0-70.0) 09/08/19 15:46 Seg Neutrophils # 3.9 K/mm3 (1.8-7.7) 09/08/19 15:46 Sodium 142 mmol/L (137-145) 09/17/19 05:20 Potassium 4.0 mmol/L (3.6-5.0) 09/17/19 05:20 Chloride 104.0 mmol/L (98-107) 09/17/19 05:20 Carbon Dioxide 24 mmol/L (22-30) 09/17/19 05:20 Anion Gap 18 mmol/L 09/17/19 05:20 BUN 19 mg/dL (9-20) 09/17/19 05:20 Creatinine 0.9 mg/dL (0.8-1.5) 09/17/19 05:20 Estimated GFR > 60 ml/min 09/17/19 05:20 BUN/Creatinine Ratio 21 % 09/17/19 05:20 Glucose 73 mg/dL (75-100) L 09/17/19 05:20 Calcium 8.7 mg/dL (8.4-10.2) 09/17/19 05:20 Magnesium 2.00 mg/dL (1.7-2.3) 09/17/19 05:20 Iron 43 ug/dL (49-181) L 09/11/19 15:54 TIBC 211 mcg/dL (250-450) L 09/11/19 15:54 % Saturation 20.38 % 09/11/19 15:54 Transferrin 155 mg/dl (180-329) L 09/11/19 15:54 Total Bilirubin 0.20 mg/dL (0.1-1.2) 09/08/19 15:46 AST 51 units/L (5-40) H 09/08/19 15:46 ALT 41 units/L (7-56) 09/08/19 15:46 Alkaline Phosphatase 74 units/L (35-129) 09/08/19 15:46 Total Protein 6.1 g/dL (6.3-8.2) L 09/08/19 15:46 Albumin 3.3 g/dL (3.9-5) L 09/08/19 15:46 Albumin/Globulin Ratio 1.2 % 09/08/19 15:46 Vitamin B12 1123 pg/mL (211-911) H 09/11/19 00:37 TSH 2.940 mlU/mL (0.270-4.200) 09/08/19 15:46 Acetaminophen < 5.0 ug/mL (10.0-30.0) L 09/08/19 15:46 Plasma/Serum Alcohol < 0.01 % (0-0.07) 09/08/19 15:46 Active Medications - Current Medications Current Medications: Generic Name Dose Route Start Last Admin Trade Name Freq PRN Reason Stop Dose Admin Acetaminophen 650 mg 09/08/19 22:36 Tylenol PO Q4H PRN Pain MILD(1-3)/Fever >100.5/AYALA Heparin Sodium (Porcine) 5,000 unit 09/09/19 10:00 09/23/19 09:58 Heparin SUB-Q 5,000 unit Q12HR MARILIN Administration Melatonin 5 mg 09/15/19 22:00 09/22/19 21:46 Melatonin PO 5 mg QHS MARILIN Administration Memantine 5 mg 09/18/19 14:00 09/23/19 09:58 Memantine PO 5 mg QDAY MARILIN Administration Ondansetron HCl 4 mg 09/08/19 22:36 09/11/19 21:08 Zofran IV 4 mg Q8H PRN Administration Nausea And Vomiting Sodium Chloride 10 ml 09/09/19 10:00 09/23/19 09:58 Sodium Chloride Flush Syringe 10 Ml IV Not Given BID MARILIN Sodium Chloride 10 ml 09/08/19 22:36 Sodium Chloride Flush Syringe 10 Ml IV PRN PRN LINE FLUSH Nutrition/Malnutrition Assess - Dietary Evaluation Nutrition/Malnutrition Findings: Nutrition Notes Start: 09/12/19 10:25 Freq: Status: Active Protocol: Document 09/20/19 11:59 LM (Rec: 09/20/19 12:04 LM [email or web address]) Nutrition Notes Initial or Follow up Reassessment Other Pertinent Diagnosis AMS, Hypernatremia, Anemia, Hypokalemia, Poss. Dementia, Edema Current Diet Mechanical Soft with Ensure daily Labs/Tests Reviewed Pertinent Medications Reviewed Height 5 ft 5 in Weight 59.2 kg [place] Body Weight (kg) 61.81 BMI 21.7 Subjective/Other Information RN stated pt ate all of his breakfast this AM. Pt stated he did not get Ensure today but drank one yesterday. Percent of energy/protein needs met: 100%/100% Burn Absent Trauma Absent GI Symptoms None Difficulty In Chewing Food Allergy No Current % PO Good (75-100%) Minimum of two criteria Yes Energy Intake (non-severe) <75% Estimated Energy Requirement >7 days Body Fat Depletion Mild depletion (non-severe) Muscle Mass Mild Depletion (non-severe) Fluid Accumulation Mild (non-severe) #1 Nutrition Diagnosis Malnutrition Diagnosis Progress(for reassessment Continues documentation) Is patient on ventilator? No Is Patient Ambulatory and/or Out of Bed No REE-([facility]-confined to bed) [phone] Calculation Used for Recommendations [facility] Additional Notes Protein needs: 71-89 g/day (1. 2-1.5 g/kg/day) Fluid needs: per MD Nutrition Intervention Change Diet Order: Continue current diet Add Supplement/Snack (indicate name/kcal Ensure Vanilla Daily, double /protein ) portions and snacks between meals Provides kCal: 350 Provides Protein (gm) 20 Goal #1 Meet >80% of energy and protein needs Goal #2 Wt. gain/maintenance Anticipated Discharge Needs: Mechanical Soft Diet Follow-Up By: 09/27/19 Additional Comments F/U for PO/ONS intakes
[2019-09-23] MEDS: MELATONIN 5 MG TAB PO SCH (21:30)
[2019-09-24 04:43] LABS: Basophils % (Auto) 0.6 % (0.0-1.8); Eosinophils # (Auto) 0.2 K/mm3 (0.0-0.4); Eosinophils % (Auto) 3.2 % (0.0-4.3); Hematocrit 33.8 % (35.5-45.6); Hemoglobin 10.7 gm/dl (11.8-15.2); Lymphocytes % (Auto) 30.3 % (13.4-35.0); Mean Corpuscular HGB Conc 32 % (32-34); Mean Corpuscular Volume 80 fl (84-94); Monocytes # (Auto) 0.7 K/mm3 (0.0-0.8); Monocytes % (Auto) 11.2 % (0.0-7.3); Platelet Count 672 K/mm3 (140-440); Red Blood Count 4.25 M/mm3 (3.65-5.03); Red Cell Distribution Width 16.3 % (13.2-15.2)
[2019-09-24 05:04] LABS: Alanine Aminotransferase 44 units/L (7-56); Albumin 3.3 g/dL (3.9-5)
[2019-09-24 05:05] LABS: Bilirubin,Direct < 0.2 mg/dL (0-0.2)
[2019-09-24 05:22] LABS: BUN/Creatinine Ratio 37; Blood Urea Nitrogen 26 mg/dL (9-20); Hemolysis Index 9
[2019-09-24] MEDS: HEPARIN 5,000 UNIT/1 ML VIAL SUB-Q SCH ×2 (10:55→21:03)
[2019-09-24] MEDS: MEMANTINE 5 MG TAB PO SCH (10:55)
--- NOTE | 2019-09-24 12:46 | Progress Note ---
Hospitalist Physical - Constitutional Vitals: Temp Pulse Resp BP Pulse Ox 97.8 F 65 18 97/56 97 09/24/19 08:33 09/24/19 08:33 09/24/19 10:00 09/24/19 08:33 09/24/19 08:33 General appearance: Present: no acute distress Results - Labs CBC & Chem 7: 09/24/19 04:25 09/24/19 04:25 Labs: Laboratory Last Values WBC 6.6 K/mm3 (4.5-11.0) 09/24/19 04:25 RBC 4.25 M/mm3 (3.65-5.03) 09/24/19 04:25 Hgb 10.7 gm/dl (11.8-15.2) L 09/24/19 04:25 Hct 33.8 % (35.5-45.6) L 09/24/19 04:25 MCV 80 fl (84-94) L 09/24/19 04:25 MCH 25 pg (28-32) L 09/24/19 04:25 MCHC 32 % (32-34) 09/24/19 04:25 RDW 16.3 % (13.2-15.2) H 09/24/19 04:25 Plt Count 672 K/mm3 (140-440) H 09/24/19 04:25 Lymph % (Auto) 30.3 % (13.4-35.0) 09/24/19 04:25 [place] % (Auto) 11.2 % (0.0-7.3) H 09/24/19 04:25 Eos % (Auto) 3.2 % (0.0-4.3) 09/24/19 04:25 Baso % (Auto) 0.6 % (0.0-1.8) 09/24/19 04:25 Lymph # 2.0 K/mm3 (1.2-5.4) 09/24/19 04:25 [place] # 0.7 K/mm3 (0.0-0.8) 09/24/19 04:25 Eos # 0.2 K/mm3 (0.0-0.4) 09/24/19 04:25 Baso # 0.0 K/mm3 (0.0-0.1) 09/24/19 04:25 Seg Neutrophils % 54.7 % (40.0-70.0) 09/24/19 04:25 Seg Neutrophils # 3.6 K/mm3 (1.8-7.7) 09/24/19 04:25 Sodium 147 mmol/L (137-145) H 09/24/19 04:25 Potassium 5.9 mmol/L (3.6-5.0) H 09/24/19 04:25 Chloride 107.3 mmol/L (98-107) H 09/24/19 04:25 Carbon Dioxide 24 mmol/L (22-30) 09/24/19 04:25 Anion Gap 22 mmol/L 09/24/19 04:25 BUN 26 mg/dL (9-20) H 09/24/19 04:25 Creatinine 0.7 mg/dL (0.8-1.5) L 09/24/19 04:25 Estimated GFR > 60 ml/min 09/24/19 04:25 BUN/Creatinine Ratio 37 % 09/24/19 04:25 Glucose 95 mg/dL (75-100) 09/24/19 04:25 Calcium 9.0 mg/dL (8.4-10.2) 09/24/19 04:25 Phosphorus 3.70 mg/dL (2.5-4.5) 09/24/19 04:25 Magnesium 2.00 mg/dL (1.7-2.3) 09/24/19 04:25 Iron 43 ug/dL (49-181) L 09/11/19 15:54 TIBC 211 mcg/dL (250-450) L 09/11/19 15:54 % Saturation 20.38 % 09/11/19 15:54 Transferrin 155 mg/dl (180-329) L 09/11/19 15:54 Total Bilirubin 0.20 mg/dL (0.1-1.2) 09/24/19 04:25 Direct Bilirubin < 0.2 mg/dL (0-0.2) 09/24/19 04:25 Indirect Bilirubin 0.0 mg/dL 09/24/19 04:25 AST 34 units/L (5-40) 09/24/19 04:25 ALT 44 units/L (7-56) 09/24/19 04:25 Alkaline Phosphatase 112 units/L (35-129) 09/24/19 04:25 Total Protein 6.6 g/dL (6.3-8.2) 09/24/19 04:25 Albumin 3.3 g/dL (3.9-5) L 09/24/19 04:25 Albumin/Globulin Ratio 1.0 % 09/24/19 04:25 Vitamin B12 1123 pg/mL (211-911) H 09/11/19 00:37 TSH 2.940 mlU/mL (0.270-4.200) 09/08/19 15:46 Acetaminophen < 5.0 ug/mL (10.0-30.0) L 09/08/19 15:46 Plasma/Serum Alcohol < 0.01 % (0-0.07) 09/08/19 15:46 Active Medications - Current Medications Current Medications: Generic Name Dose Route Start Last Admin Trade Name Freq PRN Reason Stop Dose Admin Acetaminophen 650 mg 09/08/19 22:36 Tylenol PO Q4H PRN Pain MILD(1-3)/Fever >100.5/AYALA Heparin Sodium (Porcine) 5,000 unit 09/09/19 10:00 09/24/19 10:55 Heparin SUB-Q 5,000 unit Q12HR MARILIN Administration Melatonin 5 mg 09/15/19 22:00 09/23/19 21:30 Melatonin PO 5 mg QHS MARILIN Administration Memantine 5 mg 09/18/19 14:00 09/24/19 10:55 Memantine PO 5 mg QDAY MARILIN Administration Ondansetron HCl 4 mg 09/08/19 22:36 09/11/19 21:08 Zofran IV 4 mg Q8H PRN Administration Nausea And Vomiting Sodium Chloride 10 ml 09/09/19 10:00 09/24/19 10:55 Sodium Chloride Flush Syringe 10 Ml IV 10 ml BID MARILIN Administration Sodium Chloride 10 ml 09/08/19 22:36 Sodium Chloride Flush Syringe 10 Ml IV PRN PRN LINE FLUSH Nutrition/Malnutrition Assess - Dietary Evaluation Nutrition/Malnutrition Findings: Nutrition Notes Start: 09/12/19 10:25 Freq: Status: Active Protocol: Document 09/20/19 11:59 LM (Rec: 09/20/19 12:04 LM [email or web address]) Nutrition Notes Initial or Follow up Reassessment Other Pertinent Diagnosis AMS, Hypernatremia, Anemia, Hypokalemia, Poss. Dementia, Edema Current Diet Mechanical Soft with Ensure daily Labs/Tests Reviewed Pertinent Medications Reviewed Height 5 ft 5 in Weight 59.2 kg [place] Body Weight (kg) 61.81 BMI 21.7 Subjective/Other Information RN stated pt ate all of his breakfast this AM. Pt stated he did not get Ensure today but drank one yesterday. Percent of energy/protein needs met: 100%/100% Burn Absent Trauma Absent GI Symptoms None Difficulty In Chewing Food Allergy No Current % PO Good (75-100%) Minimum of two criteria Yes Energy Intake (non-severe) <75% Estimated Energy Requirement >7 days Body Fat Depletion Mild depletion (non-severe) Muscle Mass Mild Depletion (non-severe) Fluid Accumulation Mild (non-severe) #1 Nutrition Diagnosis Malnutrition Diagnosis Progress(for reassessment Continues documentation) Is patient on ventilator? No Is Patient Ambulatory and/or Out of Bed No REE-([facility]-confined to bed) [phone] Calculation Used for Recommendations [facility] Additional Notes Protein needs: 71-89 g/day (1. 2-1.5 g/kg/day) Fluid needs: per MD Nutrition Intervention Change Diet Order: Continue current diet Add Supplement/Snack (indicate name/kcal Ensure Vanilla Daily, double /protein ) portions and snacks between meals Provides kCal: 350 Provides Protein (gm) 20 Goal #1 Meet >80% of energy and protein needs Goal #2 Wt. gain/maintenance Anticipated Discharge Needs: Mechanical Soft Diet Follow-Up By: 09/27/19 Additional Comments F/U for PO/ONS intakes
[2019-09-24] MEDS: MELATONIN 5 MG TAB PO SCH (21:03)
[2019-09-25] MEDS: MEMANTINE 5 MG TAB PO SCH (10:03)
[2019-09-25] MEDS: HEPARIN 5,000 UNIT/1 ML VIAL SUB-Q SCH ×2 (10:03→22:30)
--- NOTE | 2019-09-25 10:06 | Progress Note ---
Hospitalist Physical - Constitutional Vitals: Temp Pulse Resp BP Pulse Ox 98.5 F 79 18 99/49 96 09/25/19 02:56 09/25/19 02:56 09/25/19 07:31 09/25/19 02:56 09/25/19 07:31 General appearance: Present: no acute distress Results - Labs CBC & Chem 7: 09/24/19 04:25 09/24/19 04:25 Labs: Laboratory Last Values WBC 6.6 K/mm3 (4.5-11.0) 09/24/19 04:25 RBC 4.25 M/mm3 (3.65-5.03) 09/24/19 04:25 Hgb 10.7 gm/dl (11.8-15.2) L 09/24/19 04:25 Hct 33.8 % (35.5-45.6) L 09/24/19 04:25 MCV 80 fl (84-94) L 09/24/19 04:25 MCH 25 pg (28-32) L 09/24/19 04:25 MCHC 32 % (32-34) 09/24/19 04:25 RDW 16.3 % (13.2-15.2) H 09/24/19 04:25 Plt Count 672 K/mm3 (140-440) H 09/24/19 04:25 Lymph % (Auto) 30.3 % (13.4-35.0) 09/24/19 04:25 [place] % (Auto) 11.2 % (0.0-7.3) H 09/24/19 04:25 Eos % (Auto) 3.2 % (0.0-4.3) 09/24/19 04:25 Baso % (Auto) 0.6 % (0.0-1.8) 09/24/19 04:25 Lymph # 2.0 K/mm3 (1.2-5.4) 09/24/19 04:25 [place] # 0.7 K/mm3 (0.0-0.8) 09/24/19 04:25 Eos # 0.2 K/mm3 (0.0-0.4) 09/24/19 04:25 Baso # 0.0 K/mm3 (0.0-0.1) 09/24/19 04:25 Seg Neutrophils % 54.7 % (40.0-70.0) 09/24/19 04:25 Seg Neutrophils # 3.6 K/mm3 (1.8-7.7) 09/24/19 04:25 Sodium 147 mmol/L (137-145) H 09/24/19 04:25 Potassium 5.9 mmol/L (3.6-5.0) H 09/24/19 04:25 Chloride 107.3 mmol/L (98-107) H 09/24/19 04:25 Carbon Dioxide 24 mmol/L (22-30) 09/24/19 04:25 Anion Gap 22 mmol/L 09/24/19 04:25 BUN 26 mg/dL (9-20) H 09/24/19 04:25 Creatinine 0.7 mg/dL (0.8-1.5) L 09/24/19 04:25 Estimated GFR > 60 ml/min 09/24/19 04:25 BUN/Creatinine Ratio 37 % 09/24/19 04:25 Glucose 95 mg/dL (75-100) 09/24/19 04:25 Calcium 9.0 mg/dL (8.4-10.2) 09/24/19 04:25 Phosphorus 3.70 mg/dL (2.5-4.5) 09/24/19 04:25 Magnesium 2.00 mg/dL (1.7-2.3) 09/24/19 04:25 Iron 43 ug/dL (49-181) L 09/11/19 15:54 TIBC 211 mcg/dL (250-450) L 09/11/19 15:54 % Saturation 20.38 % 09/11/19 15:54 Transferrin 155 mg/dl (180-329) L 09/11/19 15:54 Total Bilirubin 0.20 mg/dL (0.1-1.2) 09/24/19 04:25 Direct Bilirubin < 0.2 mg/dL (0-0.2) 09/24/19 04:25 Indirect Bilirubin 0.0 mg/dL 09/24/19 04:25 AST 34 units/L (5-40) 09/24/19 04:25 ALT 44 units/L (7-56) 09/24/19 04:25 Alkaline Phosphatase 112 units/L (35-129) 09/24/19 04:25 Total Protein 6.6 g/dL (6.3-8.2) 09/24/19 04:25 Albumin 3.3 g/dL (3.9-5) L 09/24/19 04:25 Albumin/Globulin Ratio 1.0 % 09/24/19 04:25 Vitamin B12 1123 pg/mL (211-911) H 09/11/19 00:37 TSH 2.940 mlU/mL (0.270-4.200) 09/08/19 15:46 Acetaminophen < 5.0 ug/mL (10.0-30.0) L 09/08/19 15:46 Plasma/Serum Alcohol < 0.01 % (0-0.07) 09/08/19 15:46 Active Medications - Current Medications Current Medications: Generic Name Dose Route Start Last Admin Trade Name Freq PRN Reason Stop Dose Admin Acetaminophen 650 mg 09/08/19 22:36 Tylenol PO Q4H PRN Pain MILD(1-3)/Fever >100.5/AYALA Heparin Sodium (Porcine) 5,000 unit 09/09/19 10:00 09/24/19 21:03 Heparin SUB-Q 5,000 unit Q12HR MARILIN Administration Melatonin 5 mg 09/15/19 22:00 09/24/19 21:03 Melatonin PO 5 mg QHS MARILIN Administration Memantine 5 mg 09/18/19 14:00 09/24/19 10:55 Memantine PO 5 mg QDAY MARILIN Administration Ondansetron HCl 4 mg 09/08/19 22:36 09/11/19 21:08 Zofran IV 4 mg Q8H PRN Administration Nausea And Vomiting Sodium Chloride 10 ml 09/09/19 10:00 09/24/19 23:12 Sodium Chloride Flush Syringe 10 Ml IV Not Given BID MARILIN Sodium Chloride 10 ml 09/08/19 22:36 Sodium Chloride Flush Syringe 10 Ml IV PRN PRN LINE FLUSH Nutrition/Malnutrition Assess - Dietary Evaluation Nutrition/Malnutrition Findings: Nutrition Notes Start: 09/12/19 10:25 Freq: Status: Active Protocol: Document 09/20/19 11:59 LM (Rec: 09/20/19 12:04 LM [id number]) Nutrition Notes Initial or Follow up Reassessment Other Pertinent Diagnosis AMS, Hypernatremia, Anemia, Hypokalemia, Poss. Dementia, Edema Current Diet Mechanical Soft with Ensure daily Labs/Tests Reviewed Pertinent Medications Reviewed Height 5 ft 5 in Weight 59.2 kg [place] Body Weight (kg) 61.81 BMI 21.7 Subjective/Other Information RN stated pt ate all of his breakfast this AM. Pt stated he did not get Ensure today but drank one yesterday. Percent of energy/protein needs met: 100%/100% Burn Absent Trauma Absent GI Symptoms None Difficulty In Chewing Food Allergy No Current % PO Good (75-100%) Minimum of two criteria Yes Energy Intake (non-severe) <75% Estimated Energy Requirement >7 days Body Fat Depletion Mild depletion (non-severe) Muscle Mass Mild Depletion (non-severe) Fluid Accumulation Mild (non-severe) #1 Nutrition Diagnosis Malnutrition Diagnosis Progress(for reassessment Continues documentation) Is patient on ventilator? No Is Patient Ambulatory and/or Out of Bed No REE-([facility] [place]-confined to bed) [phone] Calculation Used for Recommendations [facility] Additional Notes Protein needs: 71-89 g/day (1. 2-1.5 g/kg/day) Fluid needs: per MD Nutrition Intervention Change Diet Order: Continue current diet Add Supplement/Snack (indicate name/kcal Ensure Vanilla Daily, double /protein ) portions and snacks between meals Provides kCal: 350 Provides Protein (gm) 20 Goal #1 Meet >80% of energy and protein needs Goal #2 Wt. gain/maintenance Anticipated Discharge Needs: Mechanical Soft Diet Follow-Up By: 09/27/19 Additional Comments F/U for PO/ONS intakes
[2019-09-25] MEDS: MELATONIN 5 MG TAB PO SCH (22:28)
[2019-09-25] MEDS: ACETAMINOPHEN 325 MG TAB PO PRN (22:44)
[2019-09-26 07:54] VITALS: BP 111/54
--- NOTE | 2019-09-26 08:04 | Discharge Summary ---
Providers - Providers Date of Admission: 09/09/19 11:46 Date of discharge: 09/26/19 Attending physician: DARLENE BYNUM 09/08/19 22:44 Consult to Physician [CONS] Routine Comment: Consulting Provider: SYDNI DE Physician Instructions: Reason For Exam: R/o CVA 09/09/19 11:46 Consult to Case Management [CONS] Routine Services Needed at Discharge: [employer] Notified:: AVERY Comment:: placement 09/11/19 08:50 Physical Therapy Evaluation and Treat [CONS] Routine Comment: Reason For Exam: placement 09/12/19 13:41 Consult to Mental Health [CONS] Routine Reason For Exam: severe agitation with possible psych disorder Place consult to:: mental health team Notified:: YES Phone number called:: [phone] Was contact made?: Yes If yes, spoke with:: YUE Time called:: 14:31 Comment:: MENEA Primary care physician: [employer]NALYST Hospitalization Condition: Stable Hospital course: Patient is a 69 yo man who is apparently homeless per chart and without known medical condition (first visit in our EMR) who [facility] with AMS. He was found wandering on the street and brought in by EMS. Patient was very confused and was only able to state his name and did not know why he was brought to the hospital. CT head without contrast showed no acute findings. EKG showed sinus bradycardia. He had mild electrolyte imbalances. He was diagnosis with suspected Dementia by Dr. De and unspecified cognitive disorder by psychologist engineering Damon. Case management called police and iden tifed this man * CT head, MRI brain negative. Labs which include B12 and TSH were normal. Discharge Diagnoses Dementia Acute metabolic encephalopathy Hypokalemia Hyponatremia Chronic anemia, stable Disposition: DC/TX-[id number] ANOTHER TYPE HLTHCARE Time spent for discharge: 34 minutes Core Measure Documentation - Palliative Care Palliative Care/ Comfort Measures: Not Applicable - Core Measures Any of the following diagnoses?: none - VTE Discharge Requirements Deep Vein Thrombosis/Pulmonary Embolism Present on Admission: No Has pt received <5 days of overlap therapy or INR<2.0: No Anticoagulant overlap therapy prescribed at discharge: No Contraindication No Overlap Therapy order at DC: Not Indicated Exam - Physical Exam Narrative exam: Gen: WDWN, NAD, Awake, Alert, Orientated x 1 HEENT: NCAT, EOMI, PERRL, OP Clear Neck: supple, no adenopathy, no thyromegaly, no JVD CVS/Heart: RRR, normal S1S2, pulses present bilaterally Chest/Lungs: CTA B, Symmetrical chest expansion, good air entry bilaterally GI/Abdomen: soft, NTND, good bowel sounds, no guarding or rebound /Bladder: no suprapubic tenderness, no CVA or paraspinal tenderness Extermity/Skin: no c/c/e, no obvious rash MSK: FROM x 4 Neuro: CN 2-12 grossly intact, no new focal deficits Psych: calm but confused - Constitutional Vitals: Temp Pulse Resp BP Pulse Ox 97.6 F 60 18 111/54 100 09/26/19 07:51 09/26/19 07:51 09/26/19 07:51 09/26/19 07:51 09/26/19 07:51 Plan Activity: other (no strenous activity until cleared by PCP) Diet: regular Follow up with: GAYLE GRECO MD [Staff Physician] - 7 Days Prescriptions: Melatonin [Melatonin 5MG TAB] 5 mg PO QHS #15 tablet Memantine 5 mg PO QDAY #30 tablet
[2019-09-26] MEDS: MEMANTINE 5 MG TAB PO SCH (09:05)
[2019-09-26] MEDS: HEPARIN 5,000 UNIT/1 ML VIAL SUB-Q SCH (09:06)
== END 2019-09-26 09:25 | disposition short-term general hospital (02) | DRG 71 ==
LOC: ED 12:18 → 2B-ACE 20:08 → OBSVTOIN 09-09 11:46
PROVIDERS: ADMIT Internal Medicine; ATTEND Internal Medicine
DX: G93.41 Metabolic encephalopathy (principal); E87.1 Hypo-osmolality and hyponatremia; F03.90 Unspecified dementia, unspecified severity, without behavioral disturbance, psychotic disturbance, mood disturbance, and anxiety; E87.6 Hypokalemia; R00.1 Bradycardia, unspecified; E87.8 Other disorders of electrolyte and fluid balance, not elsewhere classified; F09 Unspecified mental disorder due to known physiological condition; D50.0 Iron deficiency anemia secondary to blood loss (chronic)
CPT/HCPCS: 36415; 70450; 70551; 80048; 80053; 80076; 80320; 82607; 83550; 83735; 84100; 84443; 85025; 85027; 93005; 93010; 96360; G0378; G0480; J1630; J1644; J2060; J2405; J3480; J3486; J7040; J7070